=== PATIENT | female | born 1965 | race Caucasian/White ===

== ENCOUNTER 2017-07-22 09:42 | Day surgery (SDC) | payer BC, SELFPAY ==
--- NOTE | 2017-07-21 12:38 | EKG12_ITS ---
Test Reason : PRE-OP Blood Pressure : / mmHG Vent. Rate : 082 BPM Atrial Rate : 082 BPM P-R Int : 152 ms QRS Dur : 076 ms QT Int : 366 ms P-R-T Axes : 084 082 072 degrees QTc Int : 427 ms Normal sinus rhythm Right atrial enlargement Borderline ECG Confirmed by IRIS MCDONOUGH, LAILA ([id number]), advertising editor RAFA REZA ([id number]) on 07/22/2017 11:41:08 AM Referred By: June Flores Confirmed By:LAILA SMIMONS MD
--- NOTE | 2017-07-22 | BREAST_PTH ---
PATIENT: WILMA PADILLA LOC: [facility] – [place] U#:[id number] AGE/SX: 52/F ROOM: RE07/22/[address]: Dr. June Flores MD : 1965 BED: DIS: 07/22/2017 SPEC #: [id number] RECD: 07/22/17 14:19 STATUS: ALEXI RE #: [id number] BLAYNE: 07/22/17 00:[address]: June Flores DEPT: SURGICAL PATHOLOGY RECD BY: Desean Mccrary ENTERED: 07/22/17 14:21 SP TYPE: BREAST OTHR DR: Dr. Robert Bailon MD Tissues: Right breast, NOS Procedures: Surgery Specimen Level HEADER OPERATION: Simple mastectomy, right PRE-OP DIAGNOSIS: Right breast cancer; metastatic breast cancer from the left TISSUE SUBMITTED: Right breast mastectomy tissue, suture in tail of Euceda ISCHEMIC TIME: <10 minutes FIXATION TIME: 78 hours MICROSCOPIC DIAGNOSIS Right breast, mastectomy: Invasive ductal carcinoma. See cancer checklist below. AM:selena 07/26/17 COMMENT INVASIVE BREAST CANCER SUMMARY: Specimen: Total breast Procedure: Mastectomy specimen Specimen integrity: Single intact specimen. Specimen size: 12.5 x 11.2 x 2.3 cm Specimen laterality: Right breast Invasive tumor size: 6 x 5 x 4.5 millimeters Tumor focality: Single focus of invasive carcinoma. Macroscopic and Microscopic extent of tumor: Skin: Free of carcinoma. Nipple: Free of carcinoma. Skeletal muscle: Rare, free of carcinoma. Histologic type of invasive carcinoma: Invasive ductal carcinoma Histologic Grade (Ozzy grade): Glandular/tubular differentiation score: 3 Nuclear pleomorphism score: 2 Mitotic count score: 1 Overall grade: Grade 2 (total score of 6) Margins: Uninvolved by invasive carcinoma. Distance from closest margin (posterior margin) ? 2 mm Lymph-Vascular invasion: Not identified Dermal lymph-vascular invasion: Not identified Ductal carcinoma in situ (DCIS): Not present Lobular carcinoma in situ (LCIS): Not present Lymph nodes: Not submitted Microcalcifications - present in non-neoplastic tissue Treatment effect ? unknown Additional pathologic findings: Mild fibrocystic change and atrophy. Changes consistent with previous biopsy. Ancillary studies: Previously performed on same tumor ([id number] / [id number]). ER: 60%, weak RI: <1%, rare cells Her2 kaylan: 2+ (negative by dual KENNETH) PATHOLOGIC STAGE: pT1b Nx Mx The above summary is in compliance with [employer] of [place] (CAP) Cancer Protocols Checklist and [place] Joint Committee on Cancer (AJCC), Staging Manual, 8th Ed. Case has been reviewed in consultation with Dr. Sky who concurs with the above diagnosis. IDC:SJ MICROSCOPIC DESCRIPTION Slides are reviewed. GROSS DESCRIPTION Received in fixative is one container labeled with the patient's name and designated right breast mastectomy. The specimen consists of a mastectomy measuring 12.5 x 11.2 x 2.3 cm and weighing 120 gm. An ellipse of skin containing a centrally located nipple and areola is present. This skin fragment measures 8 x 2.3 cm. The specimen is differentially inked as follows: superior ? blue, inferior ? black, posterior ? green. Serial sections reveal a firm, chalky white area with gel-like material measuring 5 mm in diameter and located 0.3 cm from its closest (inferior) margin of excision. The remainder of the breast parenchyma is dominguez-yellow and containing focal dense white fibrous streaks. No distinct mass lesion is identified. Percussion Instrument Repairer sections are submitted as follows: 1 ? nipple and areola, 2 ? perpendicular superior, inferior and posterior margins, 3 ? perpendicular medial margin, 4 ? perpendicular lateral margin, 5-8 ? chalky area and tissue adjacent to it, 9-12 - benefits representative sections of uninvolved breast parenchyma away from chalky area. / AM:selena 07/25/17 TC:0 CPT: 30562
[2017-07-22 10:14] VITALS: BP 113/72; PULSE 68; RESP 16; TEMP 36.8; O2SAT 98; BMI 18.1
[2017-07-22 10:26] LABS: Hematocrit 36.4 % (37-47); Mean Corpuscular Hgb 36.3 pg (27.0-32.0); Mean Platelet Vol. 8.9 fl (6.2-12.0); Platelet Count 278 K/mm3 (150-450); RBC Distribution Width CV 14.6 % (11.6-14.6); RBC Distribution Width SD 58.7 fl (35.1-43.9); Red Blood Count 3.31 M/mm3 (4.2-5.4); White Blood Count 3.9 K/mm3 (4.4-11.0)
[2017-07-22 10:27] LABS: Scan Indicated on CBC? Y/N NO
--- NOTE | 2017-07-22 12:20 | OP.PN_ITS ---
Immediate Post-Op Note Date of Procedure: 07/22/17 Primary Surgeon/Physician: June Flores warehouse material handler: Rivera Hartman Pre-Operative Diagnosis: right breast cancer, metastatic left breast cancer Post-Operative Diagnosis: same Surgery/Procedure Performed:: right breast simple mastectomy Description of Surgical Findings:: no palpable breast masses in right breast tissue Estimated Blood Loss: < 20 Specimen's removed: right breast Drains: 15 Fr round passive drains - one toward axilla, one at mastectomy bed Type of Anesthesia:: General ASA Class: ASA3 Severe Disease - Admit VTE Documentation VTE Present on Admission: Yes VTE Mechan Device Prophylaxis: SCD's
[2017-07-22] MEDS: Cefazolin 2 GM in 0.9% Normal Saline 100 ML IV (12:22)
--- NOTE | 2017-07-22 12:22 | DCINST_ITS ---
Discharge Diet: No Restrictions Discharge Activity: Return to Normal Activity, May not drive while taking narcotic pain medications. Call your doctor if your incision/area has: Continuous Slow Oozing, Foul Smelling Discharge Additional Dressing/Incision Instructions:: Leave dressing in place. Can shower - but avoid getting drains/catheters wet - cover with towel, otherwise sponge bathe Allergies/Adverse Reactions: Allergies No Known Allergies Allergy (Verified 07/20/17 08:32) Medications to take at Discharge Cholecalciferol (Vitamin D3) [Vitamin D3] 1,000 unit PO DAILY 07/20/17 Palbociclib [Ibrance] 125 mg PO DAILY 07/20/17 Cephalexin [Keflex] 500 mg PO BID #14 cap 07/22/17 Hydrocodone/Acetaminophen [[place] 5-325 Tablet] 1 ea PO Q6H PRN PRN #20 tab 07/22 The following prescriptions were given: Hydrocodone/Acetaminophen [[place] 5-325 Tablet] 1 ea PO Q6H PRN PRN #20 tab PRN Reason: Mod-Severe Pain (4-10/10) Cephalexin [Keflex] 500 mg PO BID #14 cap Primary Care Physician: Robert Bailon [Primary Care Provider] - Please Follow Up With: June Flores MD - call When: to be seen Tuesday, please call for time, thank you
--- NOTE | 2017-07-22 13:28 | PCM.OPRPT ---
Report of Operation Date of Procedure: 07/22/17 Pre-Operative Diagnosis: right breast cancer, metastatic left breast cancer Post-Operative Diagnosis: same Surgery/Procedure Performed:: right breast simple mastectomy Description of Surgical Findings:: no palpable breast masses in right breast tissue director sterile processing: Rivera Hartman Type of Anesthesia:: General Anesthesiologist: Tyra Watson Specimen's removed: right breast Drains: 15 Fr round passive drains - one toward axilla, one at mastectomy bed Estimated Blood Loss (mL): 20 Fluids Replaced: 1250 ml RL Description of Procedure: After informed consent was given the patient was brought to the OR and placed in the supine position on the operating room table. Appropriate time out protocol was followed. She was then placed under general anesthesia. The patient's right chest and neck area was then prepped with a sterile surgical skin preparation and appropriate sterile surgical drapes were placed. A skin incision was made to include the periareolar tissues . The skin incision was made with a 10 blade scalpel and carried through to the subcutaneous tissues using electrocautery. Any hemorrhage was controlled with electrocautery. The medial and superior skin flap was created by the subcutaneous fat from the breast tissue using electrocautery. Any bleeding vessels were controlled with electrocautery. Larger vessels were ligated with vicryl suture. Dissection then continued to the level of the left lateral sternal border. The superior level of dissection was carried down to the clavipectoral fascia. The inferior skin flap was developed in the same fashion and the breast tissue was to its inferior border from the subcutaneous fat. The entire breast tissue and the pectoralis fascia were then from the pectoralis muscles starting medially and continuing laterally. The dissection included the interpectoral alonzo tissue. Once dissection was achieved to the lateral aspect of the breast, then the inferior portion of the lateral tissue was transected leaving the breast tissue connected only by the superior lateral tissue (tail of Eucdea) of the breast. . Hemostasis of the area of dissection was then achieved with electrocoagulation. The mastectomy bed was vigorously irrigated with sterile water and all irrigation solution was removed. A 15 Fr drain was placed in toward the axilla and another was placed along the mastectomy bed and these drains were brought out through separate skin incisions and sutured to the skin using nylon suture. The superior and inferior skin flaps were then approximated together using interrupted vicryl suture along the dermis of the skin edges. The skin incision was then reapproximated with 4-0 monocryl in a running subcuticular fashion. Cavilon and steristrips were then placed to reinforce the skin closure and proper sterile dressings were applied. - Complications none noted - Admit VTE Documentation VTE Present on Admission: Yes VTE Mechan Device Prophylaxis: SCD's
[2017-07-22 13:47] VITALS: BP 113/72; BP 123/94; PULSE 74; RESP 18; TEMP 36.7; O2SAT 99
[2017-07-22 14:00] VITALS: BP 113/72; BP 154/79; PULSE 65; RESP 18; O2SAT 97
[2017-07-22 14:15] VITALS: BP 113/72; BP 147/61; PULSE 68; RESP 18; O2SAT 98
[2017-07-22 14:29] VITALS: BP 113/72; BP 133/81; PULSE 70; RESP 18; TEMP 36.9; O2SAT 96
[2017-07-22 16:10] VITALS: BP 113/72
== END 2017-07-22 16:30 | disposition home or self-care (01) ==
LOC: SDC 09:43 → AC 09:44 → MS3 13:25 → AC 14:28
PROVIDERS: Anesthesiology; Family Provider Family Medicine; PCP Family Medicine; Visit Provider Surgery
PROC: (CPT 19307; principal; 2017-07-22 11:25)
DX: C50.111 Malignant neoplasm of central portion of right female breast (principal); C79.51 Secondary malignant neoplasm of bone; F17.210 Nicotine dependence, cigarettes, uncomplicated; Z85.3 Personal history of malignant neoplasm of breast
CPT/HCPCS: 00400; 19303; 36415; 85027; 88309; 93005; J7120; J2405

== ENCOUNTER → 2018-12-22 11:23 | Outpatient (CLI) | payer BC, SELFPAY ==
--- NOTE | 2018-12-22 11:29 | US_ITS ---
PROCEDURE: Ultrasound guided paracentesis. DATE OF EXAMINATION: December 22, 2018.. INDICATION: Female, 53 years old. Ascites. PHYSICIAN: Tyler Coleman M.D. TECHNIQUE: The risks, benefits, and alternatives to the procedure were explained to the patient. The specific risks of bleeding, infection, and damage to bowel were detailed and accepted. Witnessed informed consent was obtained. The abdomen was ultrasonographically surveyed. An appropriate pocket of fluid was identified at the right lower quadrant. The skin were cleaned and prepped in the usual sterile fashion. Using ultrasound guidance, the peritoneal cavity was accessed with a 5-Macedonian paracentesis needle/catheter system. The trocar was removed. A total of 2720 ml of felipe-colored fluid were removed from the peritoneal cavity. The catheter was removed and a sterile dressing was applied. The procedure was well tolerated. US/Paracentesis with US IMPRESSION: Ultrasound guided paracentesis. Electronically Signed: Tyler Coleman, at 9:23 EDT , Service support ,
[2018-12-22 13:09] LABS: International Normalized Ratio 1.2; Prothrombin Time (Protime)PT. 14.9 SECONDS (11.7-14.9)
[2018-12-22 14:14] VITALS: BP 148/89; BP 155/93; BP 157/90; BP 160/94; BP 161/88; BP 162/89; BP 162/95; BP 165/89; PULSE 101; PULSE 89; PULSE 91; PULSE 95; PULSE 98; PULSE 99; RESP 16; RESP 18; O2SAT 100; O2SAT 95; O2SAT 99
== END ==
PROVIDERS: Family Provider Family Medicine; PCP Family Medicine; Referring Provider Internal Medicine Hematology & Oncology; Visit Provider Internal Medicine Hematology & Oncology
DX: C79.81 Secondary malignant neoplasm of breast (principal)
CPT/HCPCS: 36415; 49083; 85610

== ENCOUNTER 2018-12-27 10:45 | Inpatient (IN) | payer BC, SELFPAY ==
--- NOTE | 2018-12-27 | IMM_PTH ---
PATIENT: WILMA PADILLA LOC: [facility] U#:[id number] AGE/SX: 53/F ROOM: MS306 RE12/27/[address]: Dr. Sai Nguyen MD : 1965 BED: 1 DIS: 12/31/2018 SPEC #: [id number] RECD: 01/01/19 14:37 STATUS: ALEXI REQ #: [id number] BLAYNE: 12/27/18 00:[address]: Sai Nguyen DEPT: IMMUNOHISTOCHEMISTRY RECD BY: Liza Shaikh ENTERED: 01/01/19 14:40 SP TYPE: IMMUNO OTHR DR: MD Dr. Sudeep Farfan MD Dr. Robert Leininger, MD Tissues: PARACENTESIS FLUID Procedures: Perfecto Ret (add) CK20 (add) REYES (add) P53 (add) Vimentin (add) CK7 (initial) PHYSICIAN & INSTITUTION [place] [id number] SPECIMEN INFORMATION: Tissue Source: Paracentesis fluid Clinical Info: Abdomen pain Specimen Number: [id number] CPT code: 24179, 35934 x5 METHODOLOGY: Deparaffinized sections of prefer/formalin-fixed tissue or PAP/DQ stained slides are incubated with monoclonal/polyclonal antibodies/oligonucleotide probes. Localization is made via biotin free immunoperoxidase method. Appropriate controls are performed and reacted as expected. Results on target cell population are indicated in the following table: RESULTS: ANTIBODY / CLONE RESULT CK7 (OV-TL12/30) negative CK20 (KS20.8) negative P53 (DO-7) negative CALRET (polyclonal) positive Vimentin (V9) positive REYES (E29) negative These tests were developed and their performance characteristics determined by [facility]. They may not have been cleared or approved by the U.S. Food and Drug Administration. The FDA has determined that such clearance or approval is not necessary. INTERPRETATION: Paracentesis fluid: No evidence of malignancy. AM:selena 01/02/19
--- NOTE | 2018-12-27 | FLU_PTH ---
PATIENT: WILMA PADILLA LOC: [facility] U#:[id number] AGE/SX: 53/F ROOM: MS306 RE12/27/[address]: Dr. Sai Nguyen MD : 1965 BED: 1 DIS: 12/31/2018 SPEC #: [id number] RECD: 12/27/18 15:37 STATUS: ALEXI REAdrián #: [id number] BLAYNE: 12/27/18 00:[address]: Tyler Coleman DEPT: CYTOLOGY RECD BY: Phil Mcclelland ENTERED: 12/29/18 14:49 SP TYPE: Fluid OTHR DR: MD Dr. Sai Farfan MD Dr. Lapman Lun, MD Dr. Robert Leininger, MD Tissues: PARACENTESIS FLUID Procedures: Special Stain Group II Surgery Specimen Level IV Cytospin Fluid HEADER OPERATION: Ultrasound-guided right paracentesis PRE-OP DIAGNOSIS: Abdomen pain TISSUE SUBMITTED: Paracentesis fluid for cytology DIAGNOSIS CYTOLOGY Paracentesis fluid for cytology (cytospin and cell block): Marked acute inflammation. Epithelioid cells with mild atypia, favor reactive. AM:selena 01/01/19 COMMENT Immunohistochemistry ([id number]) supports the above diagnosis. CYTOLOGY STUDY Slides are reviewed. CYTOLOGY GROSS Received is 16 ml of cloudy yellow fluid labeled with the patient's name and and designated per the requisition as paracentesis. Submitted for cytology preparation including cell block. / 12/29/18 TC:2 CPT: 52902, 70526
[2018-12-27 10:46] VITALS: BP 119/82; PULSE 99; RESP 16; TEMP 36.9; BMI 16.8
--- NOTE | 2018-12-27 11:03 | US_ITS ---
PROCEDURE: Ultrasound guided diagnostic paracentesis. DATE OF EXAMINATION: December 27, 2018. INDICATION: Female, 53 years old. Ascites. PHYSICIAN: Tyler Coleman M.D. TECHNIQUE: The risks, benefits, and alternatives to the procedure were explained to the patient. The specific risks of bleeding, infection, and damage to bowel were detailed and accepted. Witnessed informed consent was obtained. The abdomen was ultrasonographically surveyed. An appropriate pocket of fluid was identified at the right lower quadrant. The skin were cleaned and prepped in the usual sterile fashion. Using ultrasound guidance, the peritoneal cavity was accessed with a 5-Romansh paracentesis needle/catheter system. The trocar was removed. A total of 30 ml of cloudy felipe fluid were removed from the peritoneal cavity. The catheter was removed and a sterile dressing was applied. The procedure was well tolerated. US/Paracentesis with US IMPRESSION: Ultrasound guided paracentesis. Electronically Signed: Tyler Coleman, at 9:25 EDT , Service support ,
--- NOTE | 2018-12-27 11:06 | CT_ITS ---
STUDY: CT ABDOMEN AND PELVIS WITHOUT CONTRAST REASON FOR EXAM: Female, 53 years old. Abdominal pain. Recent paracentesis. History of metastatic breast cancer. RADIATION DOSAGE (If Supplied By Facility): CTDIvol = ( 6.04 ) mGy, DLP = ( 297.48 ) mGycm TECHNIQUE: Transaxial images were obtained from the dome of the diaphragm to the symphysis pubis without oral contrast, and without intravenous contrast. Sagittal and coronal images were reconstructed. Individualized dose optimization techniques were used for this CT. COMPARISON: None. FINDINGS: Moderate ascites within the abdomen and pelvis. Minimal increase in markings in the lateral aspect of the right lower lobe suggestive of either linear atelectasis and/or scarring. The visualized portions of the heart are within normal limits. There is a diffuse contour abnormality of the liver consistent with cirrhotic changes. Multiple hypodense nodules are seen throughout the liver in keeping with the hepatic metastasis. Normal gallbladder and extrahepatic biliary system. Normal spleen. Normal pancreas. Normal bilateral adrenal glands. Normal right kidney. Normal left kidney. Normal visualized stomach. Normal small intestine. There are scattered colonic diverticula consistent with diverticulosis. The appendix is visualized and appears normal. There is diffuse atherosclerotic calcification of the abdominal aorta, without a demonstrated aneurysm. Normal inferior vena cava. Normal retroperitoneum. Normal urinary bladder. Normal abdominal wall. Diffuse sclerotic metastases involving the visualized thoracic and lumbar vertebrae as well as the pelvis worse in the left iliac bone. CT/Abdomen/Pelvis without Cont IMPRESSION: Ascites. Hepatic metastasis. Sclerotic bone metastasis. Electronically Signed: Tyler Coleman, at 12:23 EDT , Service support ,
--- NOTE | 2018-12-27 11:18 | ED.VIS.GEN ---
History of Present Illness Chief Complaint: Abd Pain Informant: Patient Onset: Days Narrative: Abdominal pain history of metastatic breast cancer to liver and other areas. The patient indicates basically she is presenting with worsening abdominal pain. She is had abdominal pain related to ascites liver metastasis etc. she indicates she recently had a paracentesis at [facility] reports indicates she had 3 L removed she felt better than on Tuesday she had recurrence of the abdominal pain that was quite severe the day she developed diarrhea that is copious she cannot eat or drink she was at one time able to relieve her abdominal pain with Warren but that is no longer effective. She was placed on zylodia, a new chemotherapeutic agent recently, she was spoke with her oncologist Dr. Moscoso office and was asked to come to the hospital for evaluation she had no fever she indicates her abdomen she seems to be getting more distended but not as bad as it was on Tuesday prior to the paracentesis Past Medical History - Allergies and Home Meds Allergies/Adverse Reactions: Allergies No Known Allergies Allergy (Verified 12/27/18 10:48) Primary Care Physician: Robert Bailon MD [Primary Care Provider] - Past Medical History: - - She indicates she initially had breast cancer years ago was in remission for 10 years then 2 years ago was found to have metastatic rest cancer and spring 2018 was found to have metastasis to the liver Smoking Status: Current every day smoker Review of Systems General: Denies: Chills, Fever, Sweats Eyes: Denies: Visual changes - bilaterally, Diplopia ENT: Denies: Rhinorrhea, Sore throat Cardiovascular: Denies: Chest pain, Palpitations Respiratory: Denies: Dyspnea, Cough, Dyspnea on exertion Gastrointestinal: Reports: Abdominal pain, Nausea, Diarrhea. Denies: Vomiting, Melena, Hematochezia Genitourinary: Denies: Dysuria, Hematuria, Frequency Musculoskeletal: Denies: Back pain, Extremity Pain Skin: Denies: Rash, Wounds Neurological: Denies: Headache, Weakness, Numbness Physical Exam Vital Signs/Narrative: Vital Signs Temp Pulse Resp BP 12/27/18 10:46 98.4 F 99 16 119/82 H General: Well nourished, Well developed, No Acute Distress Head: Normocephalic, Atraumatic Eyes: Perrl, EOMI ENT: Moist mucous membranes, No rhinorrhea Neck: Supple, Nontender Cardiovascular: Regular rate, Regular rhythm, No murmurs Respiratory: No distress, CTA bilaterally, Chest nontender Abdomen: Soft, Nondistended, Normal bowel sounds, Tender, Guarding, - - She does have some abdominal distention but per the family this is less than it was after paracentesis and has been increasing her abdominal pain is generalized Back: Nontender, Normal Inspection Extremities: Nontender, No edema Skin: Normal color, No rash Neurological: Alert, Oriented x3, Cranial nerves II-XII grossly intact, Normal Strength, Normal Sensation Psychological: Normal affect, Normal Mood Diagnostic/Tx/Re-eval - Medical Decision Making Her differential is rather extensive which certainly include peritonitis other complications from her condition I spoke with Dr. Moscoso her attending oncologist he agreed with obtaining paracentesis to evaluate for peritonitis CT scan screening labs IV fluids he is strongly recommending admission for further management of all the above he would like her started on broad-spectrum antibiotics such as Primaxin, spoke with radiology spoke with pharmacy she will have the paracentesis done sometime today as radiology is quite busy we will start the IV antibiotics arrange for screening labs and arrange for admission, her oncologist would like to talk to her about ongoing therapy and possible hospice management going forward Please note the patient's screening labs are generally unremarkable CT abdomen report is available nothing acute metastatic lesions the paracentesis to evaluate for peritonitis is pending spoke with the hospitalist they will arrange for admission and further management Admit stable Final impression Intractable abdominal pain, diarrhea, recent paracentesis, metastatic breast cancer ED Disposition - Plan for ED Patient: Referrals: Robert Bailon MD [Primary Care Provider] -
[2018-12-27 11:33] LABS: Absolute Lymphocyte Count 0.79 X10^3/ul (0.83-4.51); Eosinophil# 0.06 X10^3/uL; Eosinophils% 0.7 % (0-5); Hemoglobin 10.4 g/dl (12.0-15.0); Lymphocyte # 0.79 X10^3/ul (4.0); Lymphocyte % 9.4 % (19-41); Mean Corp Hgb Conc 34.7 g/gl (32-36); Mean Corpuscular Hgb 31.2 pg (27.0-32.0); Mean Corpuscular Volume 90.1 fL (81-99); Mean Platelet Vol. 9.3 fl (6.2-12.0); Neutrophil # 7.01 X10^3/uL (2.7-7.7); Neutrophil % 83.7 % (47-70); Platelet Count 155 K/mm3 (150-450); RBC Distribution Width CV 20.1 % (11.6-14.6); RBC Distribution Width SD 63.6 fl (35.1-43.9); Red Blood Count 3.33 M/mm3 (4.2-5.4); White Blood Count 8.4 K/mm3 (4.4-11.0)
[2018-12-27 11:37] LABS: Differential Indicated SCAN CRITERIA MET; POSITIVE COUNT NO; POSITIVE DIFFERENTIAL NO; POSITIVE MORPHOLOGY YES
[2018-12-27 11:39] LABS: AST(SGOT) 71 U/L (15-37); Alanine Aminotransfer ALT/SGPT 70 U/L (13-56); Albumin, Serum 2.2 g/dL (3.2-5.0); Alkaline Phosphatase 402 U/L (45-117); Anion Gap 10 (5-15); BUN 21 mg/dL (7-18); BUN/Creat Ratio 30.5 RATIO (10-20); Bilirubin, Direct 4.11 mg/dL (0.00-0.30); Calcium,Total 8.6 mg/dL (8.5-10.1); Chloride 101 mmol/L (98-107); Creatinine, Serum 0.69 mg/dL (0.55-1.02); EST Glomerular Filtration Rate 95 mL/min (>60); Est Glom Filt Rate - Afr Amer 115 mL/min (>60); Estimated Creatinine Clearance 66.93 ml/min; Globulin 3.2 g/dL (2.2-4.2); Glucose 102 mg/dL (74-106); Lipase 67 U/L (73-393); Protein, Total 5.4 g/dL (6.4-8.2); Sodium Level 136 mmol/L (136-145)
[2018-12-27] MEDS: Morphine 4 MG/ML Syringe IV ×3 (11:42→22:25)
[2018-12-27] MEDS: 0.9% Normal Saline 1,000 ML 15 ML IV (11:42)
[2018-12-27] MEDS: Ondansetron 4 MG/2 ML Vial IV (11:43)
--- NOTE | 2018-12-27 12:54 | HP.PCM_ITS ---
Problem List (1) Breast CA Status: Chronic (2) Liver metastases Status: Chronic (3) Ascites Status: Chronic (4) Peritonitis Status: Acute (5) Abdominal pain Status: Acute History of Present Illness Date of Admission: 12/27/18 Chief Complaint: Abdominal pain The patient is a 53 year old F with past medical history significant for recurrent breast CA after 10-year remission. Patient had a recurrence of her breast cancer 2 years ago. She was diagnosed with metastasis to the liver in spring 2018 subsequent ascites 4. Patient has undergone therapeutic paracentesis. Her last session was on 12/22/2018. She presented to the emergency department with a day history of significant abdominal pain. A presumptive diagnosis of peritonitis was made started on meropenem and admitted to regular nursing floor for further management. On further questioning patient denied any subjective fever no chills however did complain of decreased appetite. She denied nausea no diarrhea. Imaging studies obtained in the ED demonstrated ascites as well as hepatic metastasis and sclerotic bone mets. Patient's oncologist Dr. Grove was notified prior to patient being admitted Past Medical History Past Medical History (Chronic Problems): Chronic Problems Breast CA (Chronic) Liver metastases (Chronic) Ascites (Chronic) Allergies No Known Allergies Allergy (Verified 12/27/18 10:48) Home Medications: Ambulatory Orders Medication Instructions Recorded Capecitabine 1,500 mg PO BID 12/27/18 Cholecalciferol (VIT D3) [Vitamin 1,000 unit PO DAILY 12/27/18 D] Furosemide [Lasix] 20 mg PO QODAY 12/27/18 Hydrocodone/Acetaminophen 1 tab PO Q6H PRN PRN 12/27/18 [Hydrocodone-Acetamin 5-325 mg] Potassium Chloride [Klor-Con M20] 20 meq PO DAILY 12/27/18 Spironolactone 25 mg PO DAILY 12/27/18 Zolpidem Tartrate 5 mg PO QHS PRN PRN 12/27/18 Smoking Status: Former smoker - *Family History Maternal History Items: Cancer - Breast cancer Review of Systems Constitutional: Reports: Anorexia, Malaise, Weakness. Denies: Chills, Fever HEENT: Denies: Head Aches, Sinus Congestion, Sinus Drainage Cardiovascular: Denies: Chest Pain, Orthopnea, Palpitations, Paroxysmal Noc. Dyspnea Respiratory: Denies: Cough, Shortness of breath at rest, Shortness of breath upon exertion, Sputum production Gastrointestinal: Reports: Abdominal Pain. Denies: Hematemesis, Hematochezia Genitourinary: Denies: Dysuria, Frequency, Hematuria, Urgency Musculoskeletal: Denies: Joint Pain, Joint Tenderness Skin: Denies: Rash Neurological: Denies: Focal weakness, Numbness, Tingling Psychiatric: Denies: Homicidal Ideations, Suicidal Ideations Hematologic/ Lymphatic: Denies: Easy Bruising, Easy Bleeding VTE Information - Inpt Only VTE Present on Admission: No VTE Mechan Device Prophylaxis: None VTE Pharm Prophylaxis ordered?: Yes Patient Problems: Active and Suspected Problems Peritonitis (Acute) Abdominal pain (Acute) Objective: GENERAL: Appears frail looking HEENT: Atraumatic; EYES; Anicteric, jaundiced conjunctiva NECK; supple, normal thyroid, RESPIRATORY: Diminished to auscultation CARDIOVASCULAR: Regular S1 S2, GI: Colitis abdominal tenderness : No Renal angle tenderness; EXTREMITIES: No edema, no clubbing, MUSCULOSKELETAL: No Joint Tenderness; NEURO: Awake; no lateralizing signs. SKIN: Jaundiced PSYCH; Normal affect - Physical Exam Vital Signs Temp Pulse Resp BP 98.4 F 99 16 119/82 H 12/27/18 10:46 12/27/18 10:46 12/27/18 10:46 12/27/18 10:46 Weight: 44.452 kg Body Mass Index (BMI) 16.8 Laboratory Tests Past 24 Hrs 12/27/18 12/27/18 11:04 11:04 WBC 8.4 RBC 3.33 L Hgb 10.4 L Hct 30.0 L MCV 90.1 MCH 31.2 MCHC 34.7 RDW 20.1 H RDW Differential 63.6 H Plt Count 155 MPV 9.3 Immature Gran % (Auto) 0.200 Neut % (Auto) 83.7 H Lymph % (Auto) 9.4 L [place] % (Auto) 6.0 Eos % (Auto) 0.7 Baso % (Auto) 0.0 Absolute Neuts (auto) 7.0 Absolute Lymphs (auto) 0.79 L Total Counted Not Reportable Differential Comment COMMENT Sodium 136 Potassium 4.0 Chloride 101 Carbon Dioxide 25.0 Anion Gap 10 BUN 21 H Creatinine 0.69 Estim Creat Clear Calc 66.93 Est GFR (MDRD) Af Amer 115 Est GFR (MDRD) Non-Af 95 BUN/Creatinine Ratio 30.5 H Glucose 102 Calcium 8.6 Total Bilirubin 6.60 H Direct Bilirubin 4.11 H AST 71 H ALT 70 H Alkaline Phosphatase 402 H Total Protein 5.4 L Albumin 2.2 L Globulin 3.2 Lipase 67 L Assessment/Plan All Active Problems Peritonitis (Acute) Abdominal pain (Acute) Patient is a 53-year-old lady with history of metastatic breast cancer presented with abdominal pain 1. Abdominal pain suspected to be secondary to bacterial peritonitis following patient recent therapeutic paracentesis performed on 12/22/2018. Patient has been admitted to regular nursing floor started on broad-spectrum antibiotic therapy consult placed to interventional radiology for diagnostic paracentesis 2. Recurrent breast CA with mets to the bone and liver patient is managed by Dr. Gaspar consult was placed to him from the ED. 3. Severe protein calorie malnutrition as evidenced by muscle wasting, decreased energy level and low BMI of 16.8 4. Acute cholestasis from patient's liver meds 5. DVT prophylaxis SC Lovenox Advance planning; did discuss with the patient and daughter regarding advanced directives as well as CODE STATUS. Did explain the various scenarios involved ( FULL CODE, DNR CCA, DNR CCA with no intubation, and DNR CC and what each meant) patient elected to be DNR CCA no intubation. Order was placed. Time spent on discussion 18 minutes. Code Visit Inpatient E&M: 60241 Subs Hosp L3 Procedures: 43902 Advncd Care Plan 30 Min
--- NOTE | 2018-12-27 12:59 | ED.RN ---
Addendum entered by Solo Hanson 12/29/18 21:20: Original Note: PT AWARE OF NEED FOR UA. UNABLE TO PROVIDED SAMPLE AT THIS TIME. DR CRAIG WAITING FOR SAMPLE. López TOMPKINS RN 1300
--- NOTE | 2018-12-27 13:40 | CASEMGMT ---
RN CM Assessment Introduced role of RN CM to patient and patient Dtr Amber at bedside.? Patient is alert, oriented and able?to participate in RN CM Assessment. ?Care providers, pharmacy, and demographics verified. Presentation: Abd Pain. H/o Breast CA with Mets to liver and other areas. Had Paracentesis with 3L removed on Tuesday12/22/18, states felt better for a couple days after but then started having pain again. Admit Dx: Abd Pain Re-Admit: No Barriers/Issues: None. Patient states that her goal is home however wants her pain to controlled. This advertising writer encouraged patient to s/w ONC Dr Grove if not discussed this hospitalization regarding Palliative Care for Symptom Management. PCP: Osman Bailon Specialists: ONC- Dr Grove Preferred [facility]acy: [facility] Insurance: [employer] Benefit: Yes? LNOK: Dtr Amber Bass, Cristian Bass LW/HPOA: Yes both, HPOA- Cristian Bass Living Arrangements:?Lives with her in a SS Home, 3-4 steps to enter ADL?s: Independent with ambulation and ADLs Transportation: Patient drives, has not been driving lately, Dtr Amber has been driving and will upon DC DME: None HHC: None SNF: None Goal: Home, see above issue- Denies Questions. Does not think will have any needs, Only Concern addressed above with Issue. Aware CM remains available for any emerging needs. DC PLAN: Home with possible Palliative Care Referral. Aamnda Mcclain RNCM
[2018-12-27 14:16] VITALS: BP 125/70; PULSE 98; RESP 16; TEMP 36.3; O2SAT 95
[2018-12-27 14:18] VITALS: BMI 17.0
[2018-12-27 14:21] VITALS: BMI 17.1
[2018-12-27] MEDS: Dextrose 5%/0.9% NaCl 1,000 ML 100 ML IV (14:28)
[2018-12-27 15:00] LABS: Lipase 61 U/L (73-393)
--- NOTE | 2018-12-27 15:00 | NURSING ---
pt transported down to ultrasound for paracentesis via bed.
[2018-12-27 15:45] VITALS: BP 118/72; PULSE 103; RESP 18; TEMP 36.7; O2SAT 95
[2018-12-27 15:46] VITALS: BP 125/71; BP 132/70; PULSE 106; PULSE 112; RESP 18; O2SAT 100; O2SAT 98
[2018-12-27 17:20] LABS: Auto B Fluid Analyzer BKGD Ct COUNTS W/IN LIMITS (W/IN LIMITS)
[2018-12-27 17:21] LABS: Color/Body Fluid YELLOW; Source- Body Fluid THORACENTESIS
[2018-12-27 17:22] LABS: Appearance/Body Fluid CLOUDY; Body Fluid Total Cells Counted 12.955 10^3/ul (0.000-0.000)
[2018-12-27 17:25] LABS: Body Fluid Mononuclear WBC # 0.805 10^3/uL; Body Fluid Mononuclear WBC % 6.8 %; Body Fluid Polynuclear WBC % 93.2 %
[2018-12-27 17:26] LABS: Body Fluid Polynuclear WBC # 11.096 10^3/uL
[2018-12-27 17:32] LABS: Glucose, Body Fluid 96 mg/dL (40-70)
[2018-12-27 17:33] LABS: LDH,Body Fluid 177 Units/l (Not Establ.); Protein, Body Fluid 0.7 g/dL (Not Establ.)
[2018-12-27 18:33] LABS: Body Fluid QC Type(s) BF2Q
[2018-12-27 18:38] LABS: Lymphocytes 1 %; Monocytes 13 %; Neutrophil (Segs) 86 %
[2018-12-27 20:06] VITALS: BP 127/71; PULSE 105; RESP 16; TEMP 36.9; O2SAT 98
[2018-12-27 20:08] VITALS: O2SAT 98
[2018-12-27] MEDS: 0.9% NaCl Peripheral Flush Adult/Peds IV (21:37)
[2018-12-28 01:39] LABS: Mucous, Urine 0 SEEN /hpf (<or=2+)
[2018-12-28 01:45] LABS: Glucose, Dipstick Normal (Normal); Ketone-Dipstick 15 mg/dl (Negative); Leukocyte Esterase-Dipstick 500 /ul (Negative); Nitrite-Dipstick Positive (Negative); Occult Blood-Urine 150 /ul (Negative); Protein-Dipstick 30 mg/dl (Negative); Urine Clarity Sl. Cloudy (Clear); Urine Urobilinogen 4 mg/dl (Normal)
[2018-12-28 02:05] LABS: Color, Urine SEE COMMENT BELOW (Yellow); Urine Bilirubin Dipstick 3 mg/dL (Negative)
[2018-12-28 02:06] LABS: Red Blood Cells-Urine 5-10 SEEN /hpf (0-5); Squamous Epithelial Cells - UA 0-5 SEEN /hpf (5-10); White Blood Cells 5-10 SEEN /hpf (0-5)
[2018-12-28 02:07] LABS: Bacteria RARE /hpf (None Seen)
[2018-12-28 02:13] VITALS: BP 125/70; PULSE 95; RESP 16; TEMP 36.7; O2SAT 97
[2018-12-28] MEDS: Dextrose 5%/0.9% NaCl 1,000 ML 100 ML IV ×2 (04:19→14:13)
[2018-12-28] MEDS: Morphine 4 MG/ML Syringe IV ×5 (05:33→21:26)
[2018-12-28] MEDS: Enoxaparin 40 MG/0.4 ML Syringe SC (05:34)
[2018-12-28 07:39] LABS: Anion Gap 7 (5-15); BUN 17 mg/dL (7-18); BUN/Creat Ratio 32.3 RATIO (10-20); Calcium,Total 7.8 mg/dL (8.5-10.1); Chloride 106 mmol/L (98-107); Creatinine, Serum 0.53 mg/dL (0.55-1.02); EST Glomerular Filtration Rate 130 mL/min (>60); Est Glom Filt Rate - Afr Amer 157 mL/min (>60); Estimated Creatinine Clearance 88.38 ml/min; Glucose 120 mg/dL (74-106); Potassium 3.8 mmol/L (3.5-5.1); Sodium Level 138 mmol/L (136-145)
--- NOTE | 2018-12-28 07:47 | PCM.PN.HOSP ---
Patient Problems: Active and Suspected Problems Peritonitis (Acute) Abdominal pain (Acute) Subjective: Patient seen still complains of abdominal tenderness. Paracentesis obtained on 12/27/2018 had WBC count greater than 11,000 consistent with bacterial peritonitis. Patient also reports loose bowel movement having gone 3 times already this a.m. Objective: GENERAL: Appears frail looking HEENT: Atraumatic; EYES; Anicteric, jaundiced conjunctiva NECK; supple, normal thyroid, RESPIRATORY: Diminished to auscultation CARDIOVASCULAR: Regular S1 S2, GI: Colitis abdominal tenderness : No Renal angle tenderness; EXTREMITIES: No edema, no clubbing, MUSCULOSKELETAL: No Joint Tenderness; NEURO: Awake; no lateralizing signs. SKIN: Jaundiced PSYCH; Normal affect Vitals/I&O's: Vital Signs Temp Pulse Resp BP Pulse Ox 98.1 F 95 16 125/70 H 97 12/28/18 02:13 12/28/18 02:13 12/28/18 02:13 12/28/18 02:13 12/28/18 02:13 Oxygen Delivery Method [2] Room Air Oxygen Delivery Method [1 ( Room Air Initial Baseline)] Oxygen Delivery Method Room Air Weight: 45.087 kg Body Mass Index (BMI) 17.0 Intake and Output for Last 24 Hours 12/26/18 12/27/18 12/28/18 23:59 23:59 23:59 Intake Total 368 / 368 1727 / 1727 Balance 368 / 368 1727 / 1727 Laboratory Results 12/27/18 11:04: WBC 8.4, RBC 3.33 L, Hgb 10.4 L, Hct 30.0 L, MCV 90.1, MCH 31.2, MCHC 34.7, RDW 20.1 H, RDW Differential 63.6 H, Plt Count 155, MPV 9.3, Immature Gran % (Auto) 0.200, Neut % (Auto) 83.7 H, Lymph % (Auto) 9.4 L, [place] % (Auto) 6.0, Eos % (Auto) 0.7, Baso % (Auto) 0.0, Absolute Neuts (auto) 7.0, Absolute Lymphs (auto) 0.79 L, Total Counted Not Reportable, Differential Comment COMMENT 12/27/18 11:04: Sodium 136, Potassium 4.0, Chloride 101, Carbon Dioxide 25.0, Anion Gap 10, BUN 21 H, Creatinine 0.69, Estim Creat Clear Calc 66.93, Est GFR (MDRD) Af Amer 115, Est GFR (MDRD) Non-Af 95, BUN/Creatinine Ratio 30.5 H, Glucose 102, Calcium 8.6, Total Bilirubin 6.60 H, Direct Bilirubin 4.11 H, AST 71 H, ALT 70 H, Alkaline Phosphatase 402 H, Total Protein 5.4 L, Albumin 2.2 L, Globulin 3.2, Lipase 67 L 12/27/18 14:40: Lipase 61 L 12/27/18 15:36: Fluid Glucose 96 H, Fluid Total Protein 0.7, Fluid LDH 177 12/27/18 15:36: Fluid Source THORACENTESIS, Fluid Color YELLOW, Fluid Appearance CLOUDY, Fluid WBC 12.880, Fluid RBC 0.30672, Fluid Tot Cell Count 12.955 H, Fld Polynuclear WBCs # 11.096, Fld Polynuclear WBCs % 93.2, Fluid Mononuclear WBCs 0.805, Fld Mononuclear WBCs % 6.8, Fluid Neutrophils 86, Fluid Lymphocytes 1, Fluid Monocytes 13, Fl Pathologist Comment May follow, Fluid Comment 2 SEE COMMENT 12/28/18 01:27: Urine Color SEE COMMENT BELOW, Urine Clarity Sl. Cloudy, Urine pH 6.0, Ur Specific [place] 1.020, Urine Protein 30 H, Urine Glucose (UA) Normal, Urine Ketones 15 H, Urine Occult Blood 150 H, Urine Nitrite Positive H, Urine Bilirubin 3 H, Urine Urobilinogen 4 H, Ur Leukocyte Esterase 500 H, Urine RBC 5-10 SEEN, Urine WBC 5-10 SEEN, Ur Squamous Epith Cells 0-5 SEEN, Urine Bacteria RARE, Urine Mucus 0 SEEN 12/28/18 05:39: WBC Pending, RBC Pending, Hgb Pending, Hct Pending, MCV Pending, MCH Pending, MCHC Pending, RDW Pending, RDW Differential Pending, Plt Count Pending, Neut % (Auto) Pending, Absolute Neuts (auto) Pending, Total Counted Pending 12/28/18 05:39: Sodium 138, Potassium 3.8, Chloride 106, Carbon Dioxide 25.0, Anion Gap 7, BUN 17, Creatinine 0.53 L, Estim Creat Clear Calc 88.38, Est GFR (MDRD) Af Amer 157, Est GFR (MDRD) Non-Af 130, BUN/Creatinine Ratio 32.3 H, Glucose 120 H, Calcium 7.8 L, Magnesium 2.0 Current Medications Hydrocodone Bitart/Acetaminophen ([place] 5mg-325mg) 1 tablet PO Q6H PRN PRN PRN Reason: PAIN Al Hydroxide/Mg Hydroxide (Mylanta Ii) 30 ml PO Q6H PRN PRN PRN Reason: Gastric Burning Cholecalciferol (Vitamin D) 1,000 unit PO DAILY [facility] Enoxaparin Sodium (Lovenox) 40 mg SC DAILY@0600 [facility] Last Admin: 12/28/18 05:34 Dose: 40 mg Documented by: Furosemide (Lasix) 20 mg PO QODAY [facility] Guaifenesin (Robitussin) 20 ml PO Q4H PRN PRN PRN Reason: COUGH Sodium Chloride () 1,000 mls @ 0 mls/hr IV .Q0M [facility] Last Admin: 12/27/18 11:42 Dose: 15 mls/hr Documented by: Cefepime HCl 1 gm/ Sodium (Chloride) 50 mls @ 100 mls/hr IV Q8 [facility] Last Admin: 12/28/18 05:34 Dose: 100 mls/hr Documented by: Dextrose/Sodium Chloride (Dextrose 5%/0.9% Nacl) 1,000 mls @ 100 mls/hr IV .Q10H [facility] Last Admin: 12/28/18 04:19 Dose: 100 mls/hr Documented by: Sodium Chloride () 250 mls @ 15 mls/hr IV .[id number] PRN PRN Reason: SALINE FLUSH Magnesium Hydroxide (Milk Of Magnesia) 30 ml PO DAILY PRN PRN PRN Reason: Constipation Morphine Sulfate () 4 mg IV Q3H PRN PRN PRN Reason: Severe pain (7-10/10) Last Admin: 12/28/18 05:33 Dose: 4 mg Documented by: Non-Formulary Medication (Capecitabine) 1,500 mg PO BID [facility] Nutritional Formula (Lactose Free) (Ensure Enlive) 120 ml PO 4X/DAY [facility] Last Admin: 12/27/18 21:37 Dose: Not Given Documented by: Ondansetron HCl (Zofran) 4 mg IV Q6H PRN PRN PRN Reason: NAUSEA/VOMITING Oxycodone HCl (Oxyir) 5 mg PO Q4H PRN PRN PRN Reason: Moderate Pain (4-6/10) Potassium Chloride (K-Dur) 20 meq PO DAILY TONJA Sodium Chloride () 10 - 40 ml IV UD PRN PRN Reason: SALINE FLUSH Last Admin: 12/27/18 21:37 Dose: 10 ml Documented by: Spironolactone (Aldactone) 25 mg PO DAILY TONJA Zolpidem Tartrate (Ambien (Generic)) 5 mg PO QHS PRN PRN PRN Reason: insomnia Medical Necessity - Tobacco Use Smoking Status: Current some day smoker Tobacco Use: Cigarettes Assessment/Plan All Active Problems Peritonitis (Acute) Abdominal pain (Acute) Patient is a 53-year-old lady with history of metastatic breast cancer presented with abdominal pain 1. Abdominal pain suspected to be secondary to bacterial peritonitis following patient recent therapeutic paracentesis performed on 12/22/2018. Patient has been admitted to regular nursing floor started on broad-spectrum antibiotic therapy consult placed to interventional radiology for diagnostic paracentesis ~12/28/2018 Paracentesis obtained on 12/27/2018 had WBC count greater than 11,000 consistent with bacterial peritonitis patient is on cefepime awaiting cultures 2. Acute diarrhea noted enteric pathogen panel as well as stool for C. difficile 3. Recurrent breast CA with mets to the bone and liver patient is managed by Dr. Grove; case discussed with him 4. Severe protein calorie malnutrition as evidenced by muscle wasting, decreased energy level and low BMI of 16.8 5. Acute cholestasis from patient's liver mets 6. DVT prophylaxis SC Lovenox Clinical Impression(s) from Imaging Studies Abdomen/Pelvis CT 12/27/18 11:06 IMPRESSION: Ascites. Hepatic metastasis. Sclerotic bone metastasis. Electronically Signed: Tyler Coleman, at 12:23 EDT , Service support , Code Visit Inpatient E&M: [id number] [facility] Hosp L3
[2018-12-28 07:49] LABS: Absolute Lymphocyte Count 1.13 X10^3/ul (0.83-4.51); Absolute Neutrophil Count 3.8 X10^3/uL (2.0-7.7); Eosinophil# 0.18 X10^3/uL; Eosinophils% 3.2 % (0-5); Hemoglobin 9.2 g/dl (12.0-15.0); Lymphocyte # 1.13 X10^3/ul (4.0); Lymphocyte % 20.1 % (19-41); Mean Corp Hgb Conc 35.4 g/gl (32-36); Mean Corpuscular Hgb 31.5 pg (27.0-32.0); Mean Platelet Vol. 9.2 fl (6.2-12.0); Monocyte# 0.55 X10^3/uL; Monocyte% 9.8 % (0-10); Neutrophil # 3.75 X10^3/uL (2.7-7.7); Neutrophil % 66.5 % (47-70); Platelet Count 128 K/mm3 (150-450); RBC Distribution Width CV 19.7 % (11.6-14.6); Red Blood Count 2.92 M/mm3 (4.2-5.4); White Blood Count 5.6 K/mm3 (4.4-11.0)
--- NOTE | 2018-12-28 08:05 | PCM.CONS.B ---
Problem List (1) Breast CA Status: Chronic Qualifiers: Breast location: overlapping sites of breast Estrogen receptor status: positive Patient sex: female Laterality: left Qualified Code(s): C50.812 - Malignant neoplasm of overlapping sites of left female breast; Z17.0 - Estrogen receptor positive status [ER+] (2) Liver metastases Status: Chronic (3) Ascites Status: Acute Qualifiers: Ascites type: malignant Qualified Code(s): R18.0 - Malignant ascites (4) Abdominal pain Status: Acute Qualifiers: Abdominal location: generalized Qualified Code(s): R10.84 - Generalized abdominal pain Comment: Suspect bacterial peritonitis vs related to cancer progression - Consult Date of Consult: 12/28/[address] Joya regarding patient known to me with metastatic breast cancer and extensive liver metastasis and bone metastasis. My final recommendation will be communicated to Dr. Perkins and also by electronic medical records. - Reason for Consult History of Present Illness Date of Admission: 12/27/18 Chief Complaint: Generalized abdominal pain The patient is a 53 year old F with past medical history significant for stage III left ER positive HER-2 negative breast CA after 10-year remission. Patient had a recurrence of her breast cancer 2 years ago with bone metastasis. She was previously treated with Faslodex and Ibrance. She was diagnosed with metastasis to the liver in spring 2018 subsequent ascites & jaundice. She started palliative chemotherapy with Capcitibine about 2 weeks ago. Patient has undergone therapeutic paracentesis on 12/22/2018. She presented to the emergency department with history of significant abdominal pain x 24 hours. She experience increased diarrhea and not able to eat anything since Tuesday. She also have chills and possible fever the day before. A presumptive diagnosis of peritonitis was made started on meropenem and admitted to regular nursing floor for further management. Imaging studies obtained in the ED demonstrated ascites as well as hepatic metastasis, with finding consistent with cirrhosis and sclerotic bone mets. Chemotherapy was stopped because of diarrhea and anorexia. Past Medical History Past Medical History (Chronic Problems): Chronic Problems Breast CA (Chronic) Liver metastases (Chronic) Ascites (Chronic) Allergies No Known Allergies Allergy (Verified 12/27/18 10:48) Home Medications: Ambulatory Orders Medication Instructions Recorded Capecitabine 1,500 mg PO BID 12/27/18 Cholecalciferol (VIT D3) [Vitamin 1,000 unit PO DAILY 12/27/18 D] Furosemide [Lasix] 20 mg PO QODAY 12/27/18 Hydrocodone/Acetaminophen 1 tab PO Q6H PRN PRN 12/27/18 [Hydrocodone-Acetamin 5-325 mg] Potassium Chloride [Klor-Con M20] 20 meq PO DAILY 12/27/18 Spironolactone 25 mg PO DAILY 12/27/18 Zolpidem Tartrate 5 mg PO QHS PRN PRN 12/27/18 Smoking Status: Former smoker - *Family History Maternal History Items: Cancer - Breast cancer Review of Systems Constitutional: Reports: Anorexia, Malaise, Weakness. Denies: Chills, Fever HEENT: Denies: Head Aches, Sinus Congestion, Sinus Drainage Cardiovascular: Denies: Chest Pain, Orthopnea, Palpitations, Paroxysmal Noc. Dyspnea Respiratory: Denies: Cough, Shortness of breath at rest, Shortness of breath upon exertion, Sputum production Gastrointestinal: Reports: Abdominal Pain. Denies: Hematemesis, Hematochezia Genitourinary: Denies: Dysuria, Frequency, Hematuria, Urgency Musculoskeletal: Denies: Joint Pain, Joint Tenderness Skin: Denies: Rash Neurological: Denies: Focal weakness, Numbness, Tingling Psychiatric: Denies: Homicidal Ideations, Suicidal Ideations Hematologic/ Lymphatic: Denies: Easy Bruising, Easy Bleeding Peritonitis (Acute) Abdominal pain (Acute) Objective: GENERAL: Appears frail looking HEENT: Atraumatic; EYES; Anicteric, jaundiced conjunctiva NECK; supple, normal thyroid, RESPIRATORY: Diminished to auscultation CARDIOVASCULAR: Regular S1 S2, GI: Colitis abdominal tenderness : No Renal angle tenderness; EXTREMITIES: No edema, no clubbing, MUSCULOSKELETAL: No Joint Tenderness; NEURO: Awake; no lateralizing signs. SKIN: Jaundiced PSYCH; Normal affect - Physical Exam Vital Signs - 24 hr Temp Pulse Pulse Pulse Resp Resp Resp 12/28/18 02:13 98.1 F 95 16 12/27/18 20:08 12/27/18 20:06 98.5 F 105 H 16 12/27/18 15:46 106 H 112 H 18 18 12/27/18 15:45 98.0 F 103 H 18 12/27/18 14:16 97.4 F L 98 16 12/27/18 10:46 98.4 F 99 16 BP BP BP Pulse Ox 12/28/18 02:13 125/70 H 97 12/27/18 20:08 98 12/27/18 20:06 127/71 H 98 12/27/18 15:46 132/70 H 125/71 H 12/27/18 15:45 118/72 95 12/27/18 14:16 125/70 H 95 12/27/18 10:46 119/82 H Weight: 44.452 kg Body Mass Index (BMI) 16.8 Laboratory Results 12/27/18 11:04: WBC 8.4, RBC 3.33 L, Hgb 10.4 L, Hct 30.0 L, MCV 90.1, MCH 31.2, MCHC 34.7, RDW 20.1 H, RDW Differential 63.6 H, Plt Count 155, MPV 9.3, Immature Gran % (Auto) 0.200, Neut % (Auto) 83.7 H, Lymph % (Auto) 9.4 L, [place] % (Auto) 6.0, Eos % (Auto) 0.7, Baso % (Auto) 0.0, Absolute Neuts (auto) 7.0, Absolute Lymphs (auto) 0.79 L, Total Counted Not Reportable, Differential Comment COMMENT 12/27/18 11:04: Sodium 136, Potassium 4.0, Chloride 101, Carbon Dioxide 25.0, Anion Gap 10, BUN 21 H, Creatinine 0.69, Estim Creat Clear Calc 66.93, Est GFR (MDRD) Af Amer 115, Est GFR (MDRD) Non-Af 95, BUN/Creatinine Ratio 30.5 H, Glucose 102, Calcium 8.6, Total Bilirubin 6.60 H, Direct Bilirubin 4.11 H, AST 71 H, ALT 70 H, Alkaline Phosphatase 402 H, Total Protein 5.4 L, Albumin 2.2 L, Globulin 3.2, Lipase 67 L 12/27/18 14:40: Lipase 61 L 12/27/18 15:36: Fluid Glucose 96 H, Fluid Total Protein 0.7, Fluid LDH 177 12/27/18 15:36: Fluid Source THORACENTESIS, Fluid Color YELLOW, Fluid Appearance CLOUDY, Fluid WBC 12.880, Fluid RBC 0.14319, Fluid Tot Cell Count 12.955 H, Fld Polynuclear WBCs # 11.096, Fld Polynuclear WBCs % 93.2, Fluid Mononuclear WBCs 0.805, Fld Mononuclear WBCs % 6.8, Fluid Neutrophils 86, Fluid Lymphocytes 1, Fluid Monocytes 13, Fl Pathologist Comment May follow, Fluid Comment 2 SEE COMMENT 12/28/18 01:27: Urine Color SEE COMMENT BELOW, Urine Clarity Sl. Cloudy, Urine pH 6.0, Ur Specific [place] 1.020, Urine Protein 30 H, Urine Glucose (UA) Normal, Urine Ketones 15 H, Urine Occult Blood 150 H, Urine Nitrite Positive H, Urine Bilirubin 3 H, Urine Urobilinogen 4 H, Ur Leukocyte Esterase 500 H, Urine RBC 5-10 SEEN, Urine WBC 5-10 SEEN, Ur Squamous Epith Cells 0-5 SEEN, Urine Bacteria RARE, Urine Mucus 0 SEEN 12/28/18 05:39: WBC 5.6, RBC 2.92 L, Hgb 9.2 L, Hct 26.0 L, MCV 89.0, MCH 31.5, MCHC 35.4, RDW 19.7 H, RDW Differential 62.0 H, Plt Count 128 L, MPV 9.2, Immature Gran % (Auto) 0.400, Neut % (Auto) 66.5, Lymph % (Auto) 20.1, [place] % (Auto) 9.8, Eos % (Auto) 3.2, Baso % (Auto) 0.0, Absolute Neuts (auto) 3.8, Absolute Lymphs (auto) 1.13, Total Counted Pending 12/28/18 05:39: Sodium 138, Potassium 3.8, Chloride 106, Carbon Dioxide 25.0, Anion Gap 7, BUN 17, Creatinine 0.53 L, Estim Creat Clear Calc 88.38, Est GFR (MDRD) Af Amer 157, Est GFR (MDRD) Non-Af 130, BUN/Creatinine Ratio 32.3 H, Glucose 120 H, Calcium 7.8 L, Magnesium 2.0 CT abdomen pelvis: Extensive hepatic metastasis with sclerotic changes and ascites. Sclerotic changes in the bone consistent with metastatic disease. Assessment/Plan All Active Problems Peritonitis (Acute) Abdominal pain (Acute) Metastatic breast cancer with bone and liver metastasis (Chronic) Mrs. Bass is a 53-year-old lady with history of metastatic breast cancer presented with acute abdominal pain; extensive liver metastasis with cirrhotic changes and bone metastasis. She has minimal improvement from palliative chemotherapy thus far with excessive toxicity including diarrhea and anorexia. However, there is minor improvement in her liver function including decrease in her bilirubin since starting chemotherapy. Her overall prognosis is very poor. Whether she has acute bacterial peritonitis versus progression of metastatic breast cancer; she will need pain and symptom management before going home. Plan: -Continue cefepime pending blood and fluid cultures -Continue to hold chemotherapy -Xeloda -Consult palliative care medicine for evaluation pain and symptom management -Checking stool culture C. difficile toxin and continue Imodium for diarrhea. -Nutritional therapy -Patient is DNR CCA I am not certain that we will be able to restart palliative chemotherapy at this time if her condition does not improve with progressive weight loss, anorexia, decreased performance status and liver failure. cc: Dr. Sai Nguyen; Dr. Sai Benjamin, Dr. Sudeep Grove
[2018-12-28 08:13] LABS: Differential Indicated SCAN CRITERIA MET; POSITIVE COUNT NO; POSITIVE DIFFERENTIAL NO; POSITIVE MORPHOLOGY YES
[2018-12-28 08:47] LABS: Differential Comment SCANNED
[2018-12-28 08:48] VITALS: BP 111/61; PULSE 92; RESP 16; TEMP 36.8; O2SAT 97
[2018-12-28] MEDS: 0.9% NaCl Peripheral Flush Adult/Peds IV (09:03)
[2018-12-28 14:12] VITALS: BP 148/74; PULSE 94; RESP 14; TEMP 36.4; O2SAT 97
[2018-12-28 21:14] VITALS: BP 140/74; PULSE 99; RESP 18; TEMP 35.9; O2SAT 98
[2018-12-28] MEDS: Zolpidem Tartrate 5 MG Tablet PO (21:26)
[2018-12-29] MEDS: Dextrose 5%/0.9% NaCl 1,000 ML 100 ML IV ×3 (00:05→21:33)
[2018-12-29 03:39] VITALS: BP 139/82; PULSE 91; RESP 16; TEMP 35.8; O2SAT 97
[2018-12-29] MEDS: Morphine 4 MG/ML Syringe IV ×5 (03:54→20:52)
[2018-12-29] MEDS: 0.9% NaCl Peripheral Flush Adult/Peds IV ×4 (03:54→20:54)
[2018-12-29] MEDS: Enoxaparin 40 MG/0.4 ML Syringe SC (06:18)
--- NOTE | 2018-12-29 07:10 | PN_ITS ---
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 Patient remains on cefepime pending final identification and sensitivity. Stool for C. difficile came back negative. Patient however continues to experience loose bowel movement. 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 difficile DNA Amplification - Final Objective: GENERAL: Appears frail looking HEENT: Atraumatic; EYES; Anicteric, jaundiced conjunctiva NECK; supple, normal thyroid, RESPIRATORY: Diminished to auscultation CARDIOVASCULAR: Regular S1 S2, GI: Colitis abdominal tenderness : No Renal angle tenderness; EXTREMITIES: No edema, no clubbing, MUSCULOSKELETAL: No Joint Tenderness; NEURO: Awake; no lateralizing signs. SKIN: Jaundiced PSYCH; Normal affect Vitals/I&O's: Vital Signs Temp Pulse Resp BP Pulse Ox 96.4 F L 91 16 139/82 H 97 12/29/18 03:39 12/29/18 03:39 12/29/18 03:39 12/29/18 03:39 12/29/18 03:39 Oxygen Delivery Method [2] Room Air Oxygen Delivery Method [1 ( Room Air Initial Baseline)] Oxygen Delivery Method Room Air Weight: 45.087 kg Body Mass Index (BMI) 17.0 Intake and Output for Last 24 Hours 12/27/18 12/28/18 12/29/18 23:59 23:59 23:59 Intake Total 368 / 368 2445 / 3321 2484 / 2484 Output Total 841 / 841 Balance 368 / 368 1604 / 2480 2484 / 2484 Microbiology Past 72 Hours 12/27/18 15:36 Fluid - Paracentesis (Abd) Gram Stain - Final 12/27/18 15:36 Fluid - Paracentesis (Abd) Body Fluid Culture - Preliminary 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 difficile DNA Amplification - Final Laboratory Results 12/28/18 05:39: WBC 5.6, RBC 2.92 L, Hgb 9.2 L, Hct 26.0 L, MCV 89.0, MCH 31.5, MCHC 35.4, RDW 19.7 H, RDW Differential 62.0 H, Plt Count 128 L, MPV 9.2, Im mature Gran % (Auto) 0.400, Neut % (Auto) 66.5, Lymph % (Auto) 20.1, [place] % (Auto) 9.8, Eos % (Auto) 3.2, Baso % (Auto) 0.0, Absolute Neuts (auto) 3.8, Absolute Lymphs (auto) 1.13, Total Counted Not Reportable, Differential Comment SCANNED 12/28/18 05:39: Sodium 138, Potassium 3.8, Chloride 106, Carbon Dioxide 25.0, Anion Gap 7, BUN 17, Creatinine 0.53 L, Estim Creat Clear Calc 88.38, Est GFR (MDRD) Af Amer 157, Est GFR (MDRD) Non-Af 130, BUN/Creatinine Ratio 32.3 H, Glucose 120 H, Calcium 7.8 L, Magnesium 2.0 Current Medications Hydrocodone Bitart/Acetaminophen ([place] 5mg-325mg) 1 tablet PO Q6H PRN PRN PRN Reason: PAIN Al Hydroxide/Mg Hydroxide (Mylanta Ii) 30 ml PO Q6H PRN PRN PRN Reason: Gastric Burning Cholecalciferol (Vitamin D) 1,000 unit PO DAILY [facility] Last Admin: 12/28/18 08:51 Dose: Not Given Documented by: Enoxaparin Sodium (Lovenox) 40 mg SC DAILY@0600 [facility] Last Admin: 12/29/18 06:18 Dose: 40 mg Documented by: Furosemide (Lasix) 20 mg PO QODAY [facility] Guaifenesin (Robitussin) 20 ml PO Q4H PRN PRN PRN Reason: COUGH Sodium Chloride () 1,000 mls @ 0 mls/hr IV .Q0M [facility] Last Admin: 12/27/18 11:42 Dose: 15 mls/hr Documented by: Cefepime HCl 1 gm/ Sodium (Chloride) 50 mls @ 100 mls/hr IV Q8 [facility] Last Admin: 12/29/18 06:18 Dose: 100 mls/hr Documented by: Dextrose/Sodium Chloride (Dextrose 5%/0.9% Nacl) 1,000 mls @ 100 mls/hr IV .Q10H TONJA Last Admin: 12/29/18 00:05 Dose: 100 mls/hr Documented by: Sodium Chloride () 250 mls @ 15 mls/hr IV .[id number] PRN PRN Reason: SALINE FLUSH Magnesium Hydroxide (Milk Of Magnesia) 30 ml PO DAILY PRN PRN PRN Reason: Constipation Morphine Sulfate () 4 mg IV Q3H PRN PRN PRN Reason: Severe pain (7-10/10) Last Admin: 12/29/18 06:49 Dose: 4 mg Documented by: Nutritional Formula (Lactose Free) (Ensure Enlive) 120 ml PO 4X/DAY [facility] Last Admin: 12/28/18 21:32 Dose: Not Given Documented by: Ondansetron HCl (Zofran) 4 mg IV Q6H PRN PRN PRN Reason: NAUSEA/VOMITING Oxycodone HCl (Oxyir) 5 mg PO Q4H PRN PRN PRN Reason: Moderate Pain (4-6/10) Potassium Chloride (K-Dur) 20 meq PO DAILY [facility] Last Admin: 12/28/18 08:51 Dose: Not Given Documented by: Sodium Chloride () 10 - 40 ml IV UD PRN PRN Reason: SALINE FLUSH Last Admin: 12/29/18 03:54 Dose: 10 ml Documented by: Spironolactone (Aldactone) 25 mg PO DAILY [facility] Last Admin: 12/28/18 08:50 Dose: Not Given Documented by: Zolpidem Tartrate (Ambien (Generic)) 5 mg PO QHS PRN PRN PRN Reason: insomnia Last Admin: 12/28/18 21:26 Dose: 5 mg Documented by: Medical Necessity - Tobacco Use Smoking Status: Current some day smoker Tobacco Use: Cigarettes Assessment/Plan All Active Problems Ascites (Acute) Peritonitis (Acute) Abdominal pain (Acute) Patient is a 53-year-old lady with history of metastatic breast cancer presented with abdominal pain 1. Abdominal pain secondary to bacterial peritonitis following patient recent therapeutic paracentesis performed on 12/22/2018. 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 Patient remains on cefepime pending final identification and sensitivity. Case was discussed with patient's oncologist recommendation is to obtain infectious disease consultation 2. Acute diarrhea noted enteric pathogen panel as well as stool for C. difficile. Stool studies unremarkable ~ 12/29/2018 Stool for C. difficile came back negative. Patient however continues to experience loose bowel movement. Single dose of Imodium 4 mg x 1 was given for symptom control 3. Recurrent breast CA with mets to the bone and liver patient is managed by Dr. Grove; case discussed with him ~ 12/29/2018; patient's oncologist recommended to obtain consultation with hospice/palliative care team 4. Severe protein calorie malnutrition as evidenced by muscle wasting, decreased energy level and low BMI of 16.8 5. Acute cholestasis from patient's liver mets 6. DVT prophylaxis SC Lovenox Clinical Impression(s) from Imaging Studies Abdomen/Pelvis CT 12/27/18 11:06 IMPRESSION: Ascites. Hepatic metastasis. Sclerotic bone metastasis. Electronically Signed: Tyler Coleman, at 12:23 EDT , Service support , Code Visit Inpatient E&M: [id number] Subs Hosp L2
--- NOTE | 2018-12-29 08:02 | PN_ITS ---
Progress Note Hematology oncology consult progress note: Patient still has abdominal distention and pain today. She has no nausea or vomiting, still loose stool. No fever overnight, peritoneal fluid culture came back positive for gram- negative rods, lactose fermenting. I personally reviewed CT scan of the abdomen consistent with worsening cirrhosis and possible metastatic breast cancer. 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 difficile DNA Amplification - Final Stool Laboratory Tests Past 24 Hrs 12/28/18 05:39 WBC 5.6 RBC 2.92 L Hgb 9.2 L Hct 26.0 L MCV 89.0 MCH 31.5 MCHC 35.4 RDW 19.7 H RDW Differential 62.0 H Plt Count 128 L MPV 9.2 Immature Gran % (Auto) 0.400 Neut % (Auto) 66.5 Lymph % (Auto) 20.1 [place] % (Auto) 9.8 Eos % (Auto) 3.2 Baso % (Auto) 0.0 Absolute Neuts (auto) 3.8 Absolute Lymphs (auto) 1.13 Total Counted Not Reportable Differential Comment SCANNED IMPRESSION/PLAN: Mrs. Bass is a 53-year-old lady with history of metastatic breast cancer presented with acute abdominal pain; extensive liver metastasis with cirrhotic changes and bone metastasis. She has minimal improvement from palliative chemotherapy thus far with excessive toxicity including diarrhea and anorexia. Now present with spontaneous bacterial peritonitis secondary to liver failure and possible chemotherapy related. She is not a candidate for further palliative chemotherapy treatment, because of her limited prognosis. Mrs. Bass also expressed her wishes to improve quality of life versus extending her life at this time. Plan: -CHOP chemotherapy -Xeloda -Consult palliative care medicine for evaluation pain and symptom management -Consult infectious disease for spontaneous bacterial peritonitis -Nutritional therapy -Repeat pro time/INR & tumor marker CA27.29 prognosticate her liver disease and breast cancer diagnosis -Patient is DNR CCA -Return to my office next week with family for family conference regarding hospice admission. cc: Dr. Sai Nguyen; Dr. Sai Benjamin, Dr. Sudeep Grove
[2018-12-29 08:55] VITALS: BP 138/87; PULSE 106; RESP 16; TEMP 36.3; O2SAT 96
[2018-12-29] MEDS: Spironolactone 25 MG Tablet PO (09:00)
[2018-12-29] MEDS: Loperamide 2 MG Capsule 4 MG PO (10:08)
[2018-12-29] MEDS: Furosemide 20 MG Tablet PO (10:09)
[2018-12-29 10:11] VITALS: PULSE 100
[2018-12-29 10:40] LABS: International Normalized Ratio 1.7; Prothrombin Time (Protime)PT. 19.8 SECONDS (11.7-14.9)
--- NOTE | 2018-12-29 11:18 | CASEMGMT ---
Social Work Note SW updated that Dr. Grove ordered Palliative Care/Hospice referral for pt. SW met with pt, introduced self and role at [facility]. Pt is alert and orientated x4. Pt has guest present in room and gave this worker permission to speak to her in front of her room. Pt confirms that she was made aware of Palliative Care referral and is agreeable to referral. SW explained that this worker can make referral and pt states that Hospice may contact pt in regards to arranging meeting time. VIPUL placed a call to [facility] and Per Klaudia [facility] goes to [facility]. VIPUL provided Palliative Care Referral to Natalie at [facility]. SW faxed referral. Plan: Palliative care to meet with pt Alison Brewer PERSONAL BANKER, DERRICK BOAT CAPTAIN
--- NOTE | 2018-12-29 13:49 | PCM.HP.ID ---
Problem List (1) Peritonitis Status: Acute Reason for Consult: SBP Consulted by: Dr. Nguyen History of Present Illness: The patient is a 53 year old F with metastatic breast cancer, presented with sudden onset 7/2 of diffuse sharp severe abd pain associated with some nausea, shakes, chills. Had recent paracentesis, no issues at the procedure site. No port in place. Came to ED, admitted on cefepime, feeling better now. Full ROS performed and neg except as noted above. - Medical History Past Medical History (Chronic Problems): Chronic Problems Breast CA (Chronic) Liver metastases (Chronic) Allergies/Adverse Reactions: Allergies No Known Allergies Allergy (Verified 12/27/18 10:48) Home Medications: Ambulatory Orders Medication Instructions Recorded Capecitabine 1,500 mg PO BID 12/27/18 Cholecalciferol (VIT D3) [Vitamin 1,000 unit PO DAILY 12/27/18 D] Furosemide [Lasix] 20 mg PO QODAY 12/27/18 Hydrocodone/Acetaminophen 1 tab PO Q6H PRN PRN 12/27/18 [Hydrocodone-Acetamin 5-325 mg] Potassium Chloride [Klor-Con M20] 20 meq PO DAILY 12/27/18 Spironolactone 25 mg PO DAILY 12/27/18 Zolpidem Tartrate 5 mg PO QHS PRN PRN 12/27/18 - Social History SMOKING STATUS:: Current every day smoker Vital Signs Temp Pulse Resp BP Pulse Ox 97.3 F L 100 16 138/87 H 96 12/29/18 08:55 12/29/18 10:11 12/29/18 08:55 12/29/18 08:55 12/29/18 08:55 Oxygen Delivery Method [2] Room Air Oxygen Delivery Method [1 ( Room Air Initial Baseline)] Oxygen Delivery Method Room Air Weight: 45.087 kg Body Mass Index (BMI) 17.0 Microbiology Past 72 Hours 12/28/18 08:31 Enteric Bacteriology - Final Stool 12/27/18 15:36 Gram Stain - Final Fluid - Paracentesis (Abd) Body Fluid Culture - Preliminary Escherichia coli Yeast Like Organism 12/28/18 08:20 C. difficile DNA Amplification - Final Stool Laboratory Tests Past 24 Hrs 12/29/18 12/29/18 10:20 10:20 PT 19.8 H INR 1.7 CA 27-29 Pending - Other Studies Radiology: [] reviewed Other Studies: [] Route of nutrition/ use of supplements: [] Nutritional Intake: [] IV Site: [] Rocha Catheter: [] - Physical Exam General: Alert, Oriented x3, Cooperative, No apparent distress HEENT: Atraumatic, PERRLA, EOMI, - - thrush present Neck: Supple, No Nodes Lungs: Clear to auscultation, Normal air movement Cardiovascular: Regular rate, Regular Rhythm, No murmurs Abdomen: Soft, Non-Distended, Distended Extremities: No edema Skin: No rashes IV Site: Peripheral, without redness Musculoskeletal: No Tenderness to Palpation of Joints or Extremities Neurological: Cranial nerves II-XII grossly intact - Assessment/Plan Antibiotics: [] Assessment/Plan: [] Active and Suspected Problems Ascites (Acute) Peritonitis (Acute) Abdominal pain (Acute) Suspect bacterial peritonitis vs related to cancer progression SBP related to malignancy - cx with ecoli and c.albicans. Also with thrush on exam. Narrow abx to ceftriaxone, plan on 5 day course total of iv abx, stop date 12/31/18. After that point, can stay on cipro 500mg daily for secondary prophylaxis. Thrush - will start 10 day course of fluconazole. Will follow, d/w Dr. Nguyen, thank you.
[2018-12-29 14:08] VITALS: BP 155/93; PULSE 107; PULSE 90; RESP 18; TEMP 36.3; O2SAT 95
--- NOTE | 2018-12-29 14:35 | CHAPLAIN ---
Type of Pastoral Visit _x__ Initial Visit ___ Follow-up Visit ___ On-call Visit ___ General Patient Visit ___ Spiritual Assessment ___ Family Conference ___ Bereavement ___ Rapid Response ___ Code Blue ___ Other (describe below) Pastoral Care Referral From _x__ Patient ___ Family ___ Nurse ___ Physician ___ Drink Mixer ___ Event Executive ___ Other (describe below) Sacrament/Intervention _x__ Active listening ___ Anointing ___ Bahai ___ Bereavement ___ Communion _x__ Fang exploration ___ _x__ Life review _x__ Prayer ___ Reconciliation ___ Sacrament of Sick _x__ Supportive presence ___ Wedding ___ Other (describe below) Pastoral Comments
[2018-12-29 20:58] VITALS: BP 141/79; PULSE 100; RESP 16; TEMP 36.7; O2SAT 98
[2018-12-29] MEDS: Zolpidem Tartrate 5 MG Tablet PO (22:33)
[2018-12-30] MEDS: Morphine 4 MG/ML Syringe IV ×5 (02:19→22:18)
[2018-12-30] MEDS: 0.9% NaCl Peripheral Flush Adult/Peds IV ×3 (02:20→22:18)
[2018-12-30 04:43] VITALS: BP 139/81; PULSE 96; RESP 16; TEMP 36.8; O2SAT 100
[2018-12-30] MEDS: Enoxaparin 40 MG/0.4 ML Syringe SC (06:56)
[2018-12-30] MEDS: Dextrose 5%/0.9% NaCl 1,000 ML 100 ML IV (06:58)
[2018-12-30 07:07] LABS: Absolute Lymphocyte Count 1.24 X10^3/ul (0.83-4.51); Absolute Neutrophil Count 2.4 X10^3/uL (2.0-7.7); Basophil# 0.01 X10^3/uL; Basophil% 0.2 % (0-1); Eosinophil# 0.21 X10^3/uL; Hematocrit 27.6 % (37-47); Hemoglobin 9.5 g/dl (12.0-15.0); Lymphocyte # 1.24 X10^3/ul (4.0); Lymphocyte % 23.7 % (19-41); Mean Corp Hgb Conc 34.4 g/gl (32-36); Mean Corpuscular Hgb 31.4 pg (27.0-32.0); Mean Corpuscular Volume 91.1 fL (81-99); Mean Platelet Vol. 9.2 fl (6.2-12.0); Monocyte# 1.33 X10^3/uL; Monocyte% 25.4 % (0-10); Neutrophil # 2.44 X10^3/uL (2.7-7.7); Neutrophil % 46.5 % (47-70); Platelet Count 132 K/mm3 (150-450); RBC Distribution Width CV 21.5 % (11.6-14.6); RBC Distribution Width SD 62.5 fl (35.1-43.9); Red Blood Count 3.03 M/mm3 (4.2-5.4); White Blood Count 5.2 K/mm3 (4.4-11.0)
[2018-12-30 07:16] LABS: Differential Indicated SCAN CRITERIA MET; POSITIVE COUNT NO; POSITIVE DIFFERENTIAL NO; POSITIVE MORPHOLOGY YES
--- NOTE | 2018-12-30 07:27 | PCM.PN.HOSP ---
Patient Problems: Active and Suspected Problems Ascites (Acute) Peritonitis (Acute) Abdominal pain (Acute) Suspect bacterial peritonitis vs related to cancer progression Subjective: Patient seen pain is relatively well controlled she however complains of throat pain as well as difficulty swallowing. She was seen in consultation by Dr. Patterson with ID who adjusted patient antibiotic therapy Objective: GENERAL: Appears frail looking HEENT: Atraumatic; EYES; Anicteric, jaundiced conjunctiva NECK; supple, normal thyroid, RESPIRATORY: Diminished to auscultation CARDIOVASCULAR: Regular S1 S2, GI: Colitis abdominal tenderness : No Renal angle tenderness; EXTREMITIES: No edema, no clubbing, MUSCULOSKELETAL: No Joint Tenderness; NEURO: Awake; no lateralizing signs. SKIN: Jaundiced PSYCH; Normal affect Vitals/I&O's: Vital Signs Temp Pulse Resp BP Pulse Ox 98.3 F 96 16 139/81 H 100 12/30/18 04:43 12/30/18 04:43 12/30/18 04:43 12/30/18 04:43 12/30/18 04:43 Oxygen Delivery Method [2] Room Air Oxygen Delivery Method [1 ( Room Air Initial Baseline)] Oxygen Delivery Method Room Air Weight: 45.087 kg Body Mass Index (BMI) 17.0 Intake and Output for Last 24 Hours 12/28/18 12/29/18 12/30/18 23:59 23:59 23:59 Intake Total 2445 / 3321 8536 / 9691 1927 Output Total 841 / 841 Balance 1604 / 2480 8536 / 9691 1927 Microbiology Past 72 Hours 12/28/18 08:31 Stool Enteric Bacteriology - Final 12/27/18 15:36 Fluid - Paracentesis (Abd) Gram Stain - Final 12/27/18 15:36 Fluid - Paracentesis (Abd) Body Fluid Culture - Preliminary Escherichia coli Yeast Like Organism 12/28/18 08:20 Stool C. difficile DNA Amplification - Final Laboratory Results 12/29/18 10:20: PT 19.8 H, INR 1.7 12/29/18 10:20: CA 27-29 Pending 12/30/18 06:50: WBC 5.2, RBC 3.03 L, Hgb 9.5 L, Hct 27.6 L, MCV 91.1, MCH 31.4, MCHC 34.4, RDW 21.5 H, RDW Differential 62.5 H, Plt Count 132 L, MPV 9.2, Immature Gran % (Auto) 0.200, Neut % (Auto) 46.5 L, Lymph % (Auto) 23.7, [place] % (Auto) 25.4 H, Eos % (Auto) 4.0, Baso % (Auto) 0.2, Absolute Neuts (auto) 2.4, Absolute Lymphs (auto) 1.24, Total Counted Pending 12/30/18 06:50: Sodium Pending, Potassium Pending, Chloride Pending, Carbon Dioxide Pending, Anion Gap Pending, BUN Pending, Creatinine Pending, Est GFR (MDRD) Af Amer Pending, Est GFR (MDRD) Non-Af Pending, BUN/Creatinine Ratio Pending, Glucose Pending, Calcium Pending, Magnesium Pending, Total Bilirubin Pending, Direct Bilirubin Pending, AST Pending, ALT Pending, Alkaline Phosphatase Pending, Total Protein Pending, Albumin Pending Current Medications Hydrocodone Bitart/Acetaminophen ([place] 5mg-325mg) 1 tablet PO Q6H PRN PRN PRN Reason: PAIN Al Hydroxide/Mg Hydroxide (Mylanta Ii) 30 ml PO Q6H PRN PRN PRN Reason: Gastric Burning Cholecalciferol (Vitamin D) 1,000 unit PO DAILY [facility] Last Admin: 12/29/18 09:00 Dose: 1,000 unit Documented by: Enoxaparin Sodium (Lovenox) 40 mg SC DAILY@0600 [facility] Last Admin: 12/30/18 06:56 Dose: 40 mg Documented by: Furosemide (Lasix) 20 mg PO QODAY [facility] Last Admin: 12/29/18 10:09 Dose: 20 mg Documented by: Guaifenesin (Robitussin) 20 ml PO Q4H PRN PRN PRN Reason: COUGH Sodium Chloride () 1,000 mls @ 0 mls/hr IV .Q0M [facility] Last Admin: 12/27/18 11:42 Dose: 15 mls/hr Documented by: Dextrose/Sodium Chloride (Dextrose 5%/0.9% Nacl) 1,000 mls @ 100 mls/hr IV .Q10H [facility] Last Admin: 12/30/18 06:58 Dose: 100 mls/hr Documented by: Sodium Chloride () 250 mls @ 15 mls/hr IV .[id number] PRN PRN Reason: SALINE FLUSH Ceftriaxone Sodium 2 gm/ (Sodium Chloride) 50 mls @ 100 mls/hr IV Q24 [facility] Last Admin: 12/29/18 14:07 Dose: 100 mls/hr Documented by: Fluconazole (Diflucan) 100 mg in 50 mls @ 50 mls/hr IV Q24H TONJA Magnesium Hydroxide (Milk Of Magnesia) 30 ml PO DAILY PRN PRN PRN Reason: Constipation Morphine Sulfate () 4 mg IV Q3H PRN PRN PRN Reason: Severe pain (7-10/10) Last Admin: 12/30/18 07:03 Dose: 4 mg Documented by: Nutritional Formula (Lactose Free) (Ensure Enlive) 120 ml PO 4X/DAY [facility] Last Admin: 12/29/18 20:58 Dose: Not Given Documented by: Ondansetron HCl (Zofran) 4 mg IV Q6H PRN PRN PRN Reason: NAUSEA/VOMITING Oxycodone HCl (Oxyir) 5 mg PO Q4H PRN PRN PRN Reason: Moderate Pain (4-6/10) Potassium Chloride (Potassium Chl Soln) 20 meq PO DAILY [facility] Last Admin: 12/29/18 12:15 Dose: 20 meq Documented by: Sodium Chloride () 10 - 40 ml IV UD PRN PRN Reason: SALINE FLUSH Last Admin: 12/30/18 07:03 Dose: 10 ml Documented by: Spironolactone (Aldactone) 25 mg PO DAILY [facility] Last Admin: 12/29/18 09:00 Dose: 25 mg Documented by: Zolpidem Tartrate (Ambien (Generic)) 5 mg PO QHS PRN PRN PRN Reason: insomnia Last Admin: 12/29/18 22:33 Dose: 5 mg Documented by: Medical Necessity - Tobacco Use Smoking Status: Current some day smoker Tobacco Use: Cigarettes Assessment/Plan All Active Problems Ascites (Acute) Peritonitis (Acute) Abdominal pain (Acute) Patient is a 53-year-old lady with history of metastatic breast cancer presented with abdominal pain 1. Abdominal pain secondary to bacterial peritonitis following patient recent therapeutic paracentesis performed on 12/22/2018. 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 Patient remains on cefepime pending final identification and sensitivity. Case was discussed with patient's oncologist recommendation is to obtain infectious disease consultation 12/30/2018: Cefepime discontinued on 12/29/2018 patient started on Rocephin scheduled to receive her last dose on 12/31/2018. Patient will be discharged home on a prophylactic dose of ciprofloxacin 2. Acute diarrhea noted enteric pathogen panel as well as stool for C. difficile. Stool studies unremarkable ~ 12/29/2018 Stool for C. difficile came back negative. Patient however continues to experience loose bowel movement. Single dose of Imodium 4 mg x 1 was given for symptom control 3. Recurrent breast CA with mets to the bone and liver patient is managed by Dr. Grove; case discussed with him ~ 12/29/2018; patient's oncologist recommended to obtain consultation with hospice/palliative care team 4. Severe protein calorie malnutrition as evidenced by muscle wasting, decreased energy level and low BMI of 16.8 5. Acute cholestasis from patient's liver mets 6. Candidiasis patient is on Diflucan 7. DVT prophylaxis SC Lovenox Code Visit Inpatient E&M: [id number] Subs Hosp L2
[2018-12-30 07:33] LABS: AST(SGOT) 36 U/L (15-37); Alanine Aminotransfer ALT/SGPT 41 U/L (13-56); Albumin, Serum 1.7 g/dL (3.2-5.0); Alkaline Phosphatase 300 U/L (45-117); Anion Gap 8 (5-15); BUN 11 mg/dL (7-18); BUN/Creat Ratio 21.8 RATIO (10-20); Bilirubin, Direct 2.54 mg/dL (0.00-0.30); Calcium,Total 7.1 mg/dL (8.5-10.1); Chloride 107 mmol/L (98-107); EST Glomerular Filtration Rate 136 mL/min (>60); Est Glom Filt Rate - Afr Amer 165 mL/min (>60); Estimated Creatinine Clearance 93.68 ml/min; Glucose 98 mg/dL (74-106); Magnesium 1.9 mg/dL (1.6-2.6); Potassium 2.9 mmol/L (3.5-5.1); Protein, Total 4.7 g/dL (6.4-8.2); Sodium Level 138 mmol/L (136-145)
[2018-12-30 08:25] LABS: Anisocytosis 2+; Differential Comment SCANNED; Macrocytosis 1+; Polychromasia 1+; Target Cells 1+
[2018-12-30 09:14] VITALS: BP 145/69; PULSE 93; RESP 16; RESP 18; TEMP 36.8; O2SAT 100
[2018-12-30] MEDS: Spironolactone 25 MG Tablet PO (10:58)
[2018-12-30 16:46] VITALS: BP 152/80; PULSE 95; RESP 18; TEMP 37.1; O2SAT 100
[2018-12-30 22:10] VITALS: BP 149/86; PULSE 92; RESP 18; TEMP 36.6; O2SAT 100
[2018-12-31] MEDS: Mag Hydrox/Al Hydrox/Simeth 30 ML UDC PO (01:14)
[2018-12-31 01:16] VITALS: BP 169/94; PULSE 100; RESP 18; TEMP 36.7; O2SAT 98
[2018-12-31] MEDS: Morphine 4 MG/ML Syringe IV (06:05)
[2018-12-31] MEDS: Enoxaparin 40 MG/0.4 ML Syringe SC (06:05)
[2018-12-31 07:22] LABS: Anion Gap 7 (5-15); BUN 20 mg/dL (7-18); BUN/Creat Ratio 23.5 RATIO (10-20); Chloride 107 mmol/L (98-107); Creatinine, Serum 0.85 mg/dL (0.55-1.02); EST Glomerular Filtration Rate 74 mL/min (>60); Est Glom Filt Rate - Afr Amer 90 mL/min (>60); Estimated Creatinine Clearance 55.11 ml/min; Glucose 98 mg/dL (74-106); Potassium 3.9 mmol/L (3.5-5.1); Sodium Level 137 mmol/L (136-145)
[2018-12-31 07:24] LABS: Absolute Lymphocyte Count 1.07 X10^3/ul (0.83-4.51); Absolute Neutrophil Count 6.4 X10^3/uL (2.0-7.7); Basophil# 0.04 X10^3/uL; Basophil% 0.4 % (0-1); Eosinophil# 0.47 X10^3/uL; Eosinophils% 5.1 % (0-5); Hematocrit 36.6 % (37-47); Lymphocyte # 1.07 X10^3/ul (4.0); Lymphocyte % 11.7 % (19-41); Mean Corp Hgb Conc 32.8 g/gl (32-36); Mean Corpuscular Hgb 29.7 pg (27.0-32.0); Mean Corpuscular Volume 90.6 fL (81-99); Mean Platelet Vol. 10.3 fl (6.2-12.0); Monocyte# 1.07 X10^3/uL; Monocyte% 11.7 % (0-10); Neutrophil # 6.44 X10^3/uL (2.7-7.7); Neutrophil % 70.6 % (47-70); Platelet Count 90 K/mm3 (150-450); RBC Distribution Width CV 18.3 % (11.6-14.6); Red Blood Count 4.04 M/mm3 (4.2-5.4); White Blood Count 9.1 K/mm3 (4.4-11.0)
[2018-12-31 07:25] LABS: POSITIVE COUNT NO; POSITIVE DIFFERENTIAL NO; POSITIVE MORPHOLOGY NO
[2018-12-31 08:39] VITALS: BP 172/86; PULSE 100; RESP 18; TEMP 36.6; O2SAT 98
--- NOTE | 2018-12-31 09:14 | DCINST_ITS ---
- Discharge Diagnoses Current Active Problems: Current Active and Chronic Problems Breast CA (Chronic) Liver metastases (Chronic) Ascites (Acute) Peritonitis (Acute) Abdominal pain (Acute) Suspect bacterial peritonitis vs related to cancer progression You will use the following diet at home:: No restrictions Discharge Activity: Return to Normal Activity, May not drive while taking narcotic pain medications. Allergies/Adverse Reactions: Allergies No Known Allergies Allergy (Verified 12/27/18 10:48) Medications to take at Discharge Capecitabine 1,500 mg PO BID 12/27/18 Cholecalciferol (VIT D3) [Vitamin D3] 1,000 unit PO DAILY 12/27/18 Furosemide [Lasix] 20 mg PO QODAY 12/27/18 Potassium Chloride [Klor-Con M20] 20 meq PO DAILY 12/27/18 Spironolactone 25 mg PO DAILY 12/27/18 Zolpidem Tartrate 5 mg PO QHS PRN PRN 12/27/18 Ciprofloxacin 500 mg PO DAILY #200 ml 12/31/18 Nystatin 500,000U/5ML [Mycostatin] 5 ml PO 4X/DAY #200 ml 12/31/18 Ondansetron [Ondansetron Odt] 8 mg PO 4X/DAY PRN PRN #30 tab.rapdis 12/31/18 Oxycodone [Oxyfast] 10 mg PO Q4H PRN PRN 5 Days #10 ml 12/31/18 The following prescriptions were given: Ciprofloxacin 500 mg PO DAILY #200 ml Prescription Printed Nystatin 500,000U/5ML [Mycostatin] 5 ml PO 4X/DAY #200 ml Prescription Printed Ondansetron [Ondansetron Odt] 8 mg PO 4X/DAY PRN PRN #30 tab.rapdis PRN Reason: Nausea/Vomiting Prescription Printed Oxycodone [Oxyfast] 10 mg PO Q4H PRN PRN 5 Days #10 ml PRN Reason: Pain Prescription Printed Primary Care Physician: Robert Bailon MD [Primary Care Provider] - Please follow up with your Primary Care Physician in: in 1-2 weeks Test Results: Test results from this visit will be discussed in further detail at your follow- up appointment, if applicable. Please Follow Up With: Sudeep Grove MD When: in 1 week Proposed Discharge Date: 12/31/18
--- NOTE | 2018-12-31 09:15 | PCM.DC.SUM ---
Discharge Date and Diagnosis - Problem List Patient Problems: Active and Suspected Problems Ascites (Acute) Peritonitis (Acute) Abdominal pain (Acute) Suspect bacterial peritonitis vs related to cancer progression Date of Admission: 12/27/18 Date of Discharge: 12/31/18 - Primary Discharge Diagnosis Active and Suspected Problems Ascites (Acute) Peritonitis (Acute) Abdominal pain (Acute) Suspect bacterial peritonitis vs related to cancer progression - Secondary Discharge Diagnosis Chronic Problems Breast CA (Chronic) Liver metastases (Chronic) Hospital Course and Treatment Imaging Results: Clinical Impression(s) from Imaging Studies Paracentesis Ultrasound 12/27/18 11:03 IMPRESSION: Ultrasound guided paracentesis. Electronically Signed: Tyler Coleman, at 9:25 EDT , Service support , Abdomen/Pelvis CT 12/27/18 11:06 IMPRESSION: Ascites. Hepatic metastasis. Sclerotic bone metastasis. Electronically Signed: Tyler Coleman, at 12:23 EDT , Service support , Summary of Care Provided: Patient is a 53-year-old lady with history of metastatic breast cancer presented with abdominal pain 1. Abdominal pain secondary to bacterial peritonitis with E. coli following patient recent therapeutic paracentesis performed on 12/22/2018. Patient has been admitted to regular nursing floor started on broad-spectrum antibiotic therapy consult placed to interventional radiology for diagnostic paracentesis. Patient ascitic fluid analysis following her paracentesis was consistent with bacterial peritonitis managed with cefepime switched to Rocephin following consultation with infectious disease. Patient was discharged home on Cipro 500 mg daily for prophylaxis 2. Acute diarrhea noted enteric pathogen panel as well as stool for C. difficile. Stool studies unremarkable 3. Recurrent breast CA with mets to the bone and liver patient is managed by Dr. Grove; case discussed with him; patient's oncologist recommended to obtain consultation with hospice/palliative care team 4. Severe protein calorie malnutrition as evidenced by muscle wasting, decreased energy level and low BMI of 16.8 5. Acute cholestasis from patient's liver mets 6. Oral candidiasis patient is on Diflucan 7. DVT prophylaxis SC Lovenox Patient Problems: Active and Suspected Problems Ascites (Acute) Peritonitis (Acute) Abdominal pain (Acute) Suspect bacterial peritonitis vs related to cancer progression Objective: GENERAL: Appears frail looking HEENT: Atraumatic; EYES; Anicteric, jaundiced conjunctiva NECK; supple, normal thyroid, RESPIRATORY: Diminished to auscultation CARDIOVASCULAR: Regular S1 S2, GI: Colitis abdominal tenderness : No Renal angle tenderness; EXTREMITIES: No edema, no clubbing, MUSCULOSKELETAL: No Joint Tenderness; NEURO: Awake; no lateralizing signs. SKIN: Jaundiced PSYCH; Normal affect - Physical Exam Vital Signs Temp Pulse Resp BP Pulse Ox 97.9 F 100 18 172/86 H 98 12/31/18 08:39 12/31/18 08:39 12/31/18 08:39 12/31/18 08:39 12/31/18 08:39 Oxygen Delivery Method [2] Room Air Oxygen Delivery Method [1 ( Room Air Initial Baseline)] Oxygen Delivery Method Room Air Weight: 45.087 kg Body Mass Index (BMI) 17.0 Intake and Output for Last 24 Hours 12/29/18 12/30/18 12/31/18 23:59 23:59 23:59 Intake Total 8536 / 9691 4548 / 4898 650 / 650 Balance 8536 / 9691 4548 / 4898 650 / 650 Microbiology Past 72 Hours 12/27/18 15:36 Gram Stain - Final Fluid - Paracentesis (Abd) Body Fluid Culture - Final Escherichia coli Domonique albicans 12/28/18 08:31 Enteric Bacteriology - Final Stool 12/28/18 08:20 C. difficile DNA Amplification - Final Stool Laboratory Tests Past 24 Hrs 12/31/18 12/31/18 05:54 05:54 WBC 9.1 RBC 4.04 L Hgb 12.0 Hct 36.6 L MCV 90.6 MCH 29.7 MCHC 32.8 RDW 18.3 H RDW Differential 57.0 H Plt Count 90 L MPV 10.3 Immature Gran % (Auto) 0.500 Neut % (Auto) 70.6 H Lymph % (Auto) 11.7 L Jerome % (Auto) 11.7 H Eos % (Auto) 5.1 H Baso % (Auto) 0.4 Absolute Neuts (auto) 6.4 Absolute Lymphs (auto) 1.07 Total Counted Not Reportable Sodium 137 Potassium 3.9 Chloride 107 Carbon Dioxide 23.0 Anion Gap 7 BUN 20 H Creatinine 0.85 Estim Creat Clear Calc 55.11 Est GFR (MDRD) Af Amer 90 Est GFR (MDRD) Non-Af 74 BUN/Creatinine Ratio 23.5 H Glucose 98 Calcium 8.0 L Discharge Activity: Return to Normal Activity, May not drive while taking narcotic pain medications. Home Medications: Medications to take at Discharge Capecitabine 1,500 mg PO BID 12/27/18 Cholecalciferol (VIT D3) [Vitamin D3] 1,000 unit PO DAILY 12/27/18 Furosemide [Lasix] 20 mg PO QODAY 12/27/18 Potassium Chloride [Klor-Con M20] 20 meq PO DAILY 12/27/18 Spironolactone 25 mg PO DAILY 12/27/18 Zolpidem Tartrate 5 mg PO QHS PRN PRN 12/27/18 Ciprofloxacin 500 mg PO DAILY #200 ml 12/31/18 Nystatin 500,000U/5ML [Mycostatin] 5 ml PO 4X/DAY #200 ml 12/31/18 Ondansetron [Ondansetron Odt] 8 mg PO 4X/DAY PRN PRN #30 tab.rapdis 12/31/18 Oxycodone [Oxyfast] 10 mg PO Q4H PRN PRN 5 Days #10 ml 12/31/18 Following Prescrptions Were Given to Patient: Ciprofloxacin 500 mg PO DAILY #200 ml Prescription Printed Nystatin 500,000U/5ML [Mycostatin] 5 ml PO 4X/DAY #200 ml Prescription Printed Ondansetron [Ondansetron Odt] 8 mg PO 4X/DAY PRN PRN #30 tab.rapdis PRN Reason: Nausea/Vomiting Prescription Printed Oxycodone [Oxyfast] 10 mg PO Q4H PRN PRN 5 Days #10 ml PRN Reason: Pain Prescription Printed Primary Care Physician: Robetr Bailon MD [Primary Care Provider] - Please follow up with your Primary Care Physician in: in 1-2 weeks Please Follow Up With: Sudeep Grove MD When: in 1 week Disposition: Home with Hospice Minutes spent on discharge:: 45 Patient Condition:: Fair Medical Necessity - Tobacco Use Smoking Status: Current some day smoker Tobacco Use: Cigarettes Meaningful Use Info Meaningful Use Diagnoses (Choose all that apply): None applicable Code Visit Inpatient E&M: 34916 Disch Hosp
[2018-12-31] MEDS: Spironolactone 25 MG Tablet PO (09:48)
[2018-12-31] MEDS: Furosemide 20 MG Tablet PO (09:48)
[2018-12-31 12:36] VITALS: BP 154/76; PULSE 99; RESP 18; TEMP 37.2; O2SAT 99
[2018-12-31 16:16] LABS: CA 27.29 252.1 U/mL (0.0-38.6)
[2019-01-01 14:17] LABS: Pathologist Comment/Body Fluid Reviewed
== END 2018-12-31 12:40 | disposition hospice, home (50) | DRG 371 ==
LOC: ED 12:19 → MS3 13:03
PROVIDERS: Internal Medicine Hematology & Oncology; Admitting Provider Internal Medicine; Emergency Provider Emergency Medicine; Family Provider Family Medicine; PCP Family Medicine; Visit Provider Internal Medicine
DX: K65.2 Spontaneous bacterial peritonitis (principal); E43 Unspecified severe protein-calorie malnutrition; K83.1 Obstruction of bile duct; C78.7 Secondary malignant neoplasm of liver and intrahepatic bile duct; Z68.1 Body mass index [BMI] 19.9 or less, adult; C79.51 Secondary malignant neoplasm of bone; B37.0 Candidal stomatitis; K52.1 Toxic gastroenteritis and colitis; Z85.3 Personal history of malignant neoplasm of breast; F17.210 Nicotine dependence, cigarettes, uncomplicated; Z66 Do not resuscitate; B96.20 Unspecified Escherichia coli [E. coli] as the cause of diseases classified elsewhere; Z51.5 Encounter for palliative care; T45.1X5A Adverse effect of antineoplastic and immunosuppressive drugs, initial encounter
CPT/HCPCS: 36415; 49083; 74176; 80048; 80076; 81001; 82945; 83615; 83690; 83735; 84157; 85025; 85610; 86300; 87070; 87075; 87077; 87186; 87205; 87493; 87506; 88108; 88305; 88313; 88341; 88342; 89050; 97802; 99284; 99406; J2185; J7030; A4216; J0696; J2405

== ENCOUNTER → 2019-01-04 16:29 | Outpatient (CLI) | payer BC, SELFPAY ==
[2018-12-27 14:18] VITALS: BMI 17.0
[2019-01-04 17:11] LABS: International Normalized Ratio 1.3; Prothrombin Time (Protime)PT. 16.1 SECONDS (11.7-14.9)
[2019-01-04 17:25] LABS: Hematocrit 33.2 % (37-47); Hemoglobin 11.3 g/dl (12.0-15.0); Mean Corpuscular Hgb 32.9 pg (27.0-32.0); Mean Corpuscular Volume 96.8 fL (81-99); Mean Platelet Vol. 9.5 fl (6.2-12.0); Platelet Count 118 K/mm3 (150-450); RBC Distribution Width CV 26.8 % (11.6-14.6); RBC Distribution Width SD 89.9 fl (35.1-43.9); Red Blood Count 3.43 M/mm3 (4.2-5.4); White Blood Count 7.1 K/mm3 (4.4-11.0)
[2019-01-04 17:27] LABS: Scan Indicated on CBC? Y/N YES- FLAGS NOTED
[2019-01-04 19:37] LABS: Differential Comment SCANNED
== END ==
PROVIDERS: Family Provider Family Medicine; PCP Family Medicine; Referring Provider Surgery; Visit Provider Surgery
DX: R18.0 Malignant ascites (principal)
CPT/HCPCS: 36415; 85027; 85610

== ENCOUNTER → 2019-01-05 14:03 | Outpatient (CLI) | payer BC, SELFPAY ==
[2018-12-27 14:18] VITALS: BMI 17.0
--- NOTE | 2019-01-05 14:06 | US_ITS ---
PROCEDURE: Ultrasound guided paracentesis. DATE OF EXAMINATION: January 05, 2019.. INDICATION: Female, 53 years old. Ascites. PHYSICIAN: Tyler Coleman M.D. TECHNIQUE: The risks, benefits, and alternatives to the procedure were explained to the patient. The specific risks of bleeding, infection, and damage to bowel were detailed and accepted. Witnessed informed consent was obtained. The abdomen was ultrasonographically surveyed. An appropriate pocket of fluid was identified at the right lower quadrant. The skin were cleaned and prepped in the usual sterile fashion. Using ultrasound guidance, the peritoneal cavity was accessed with a 5-Estonian paracentesis needle/catheter system. The trocar was removed. A total of 820 ml of cloudy felipe-colored fluid were removed from the peritoneal cavity. A 120 mL sample was sent to the laboratory. The catheter was removed and a sterile dressing was applied. The procedure was well tolerated. US/Paracentesis with US IMPRESSION: Ultrasound guided paracentesis. Electronically Signed: Tyler Coleman, at 15:24 EDT , Service support ,
[2019-01-05 15:48] VITALS: BP 104/70; BP 114/71; PULSE 92; PULSE 98; RESP 18; O2SAT 99
== END ==
PROVIDERS: Family Provider Family Medicine; PCP Family Medicine; Referring Provider Surgery; Visit Provider Surgery
DX: R18.0 Malignant ascites (principal)
CPT/HCPCS: 49083; 87070; 87075; 87205

== ENCOUNTER 2019-01-10 07:50 | Day surgery (SDC) | payer BC, SELFPAY ==
--- NOTE | 2019-01-08 18:14 | HP.PCM_ITS ---
History and Physical Date of Admission: 01/10/19 HISTORY AND PHYSICAL ? Marilu Bass 1965 ? ? REFERRING PHYSICIAN: ??Osman Bailon* ? CHIEF COMPLAINT: ??discuss pleurx ? HPI: The patient is a 53 year old female with a diagnosis of?metastatic breast cancer with extensive bone metastasis, liver metastasis and ascites.. ?Marilu?is now been transferred to hospice care. ???Marilu underwent an abdominal paracentesis on December 27, 2018.. ? Fluid was sent for culture which returned as Escherichia coli and Domonique on the routine culture and Clostridium Bacteroides on the anaerobic culture.??Cytology returned as marked acute inflammation. ?Immunohistochemistry was negative for malignant cells.??Body fluid panel returned as yellow cloudy fluid with a total elevated white blood cell count was 93% neutrophils ? The patient is referred for evaluation for placement of a tunnelled?peritoneal?catheter or Pleurex catheter?due to rapid recanalization of fluid and to assist in care for the patient and hospice ? PAST?MEDICAL?HISTORY PAST MEDICAL HISTORY Diagnosis Date ? Breast cancer (HCC) ? ? 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 Other kyphoscoliosis and scoliosis ? ? ? PAST?SURGICAL?HISTORY PAST SURGICAL HISTORY Procedure Laterality Date ? MASTECTOMY BRA ? ? ? left breast ? MASTECTOMY,SIMPLE Right 06/2017 ? S PORT-A[facility]CATH [phone] ? CURRENT?MEDICATIONS Current Outpatient Medications Medication Sig Dispense Refill ? potassium chloride ER (K-DUR, KLOR-CON) 20 mEq tablet Take 1 tablet by mouth once daily. 30 tablet 0 ? furosemide (LASIX) 20 mg tablet Take 1 tablet by mouth every 48 hours. 20 tablet 0 ? capecitabine (XELODA) 500 mg tablet Take 3 tablets (1500mg) by mouth twice daily for 14 days, followed by 7 days off. Take after meals 84 tablet 0 ? spironolactone (ALDACTONE) 25 mg tablet Take 1 tablet by mouth once daily. 30 tablet 0 ? zolpidem (AMBIEN) 5 mg tablet Take 1 tablet by mouth at bedtime as needed for up to 30 days. FOR INSOMNIA (Patient not taking: Reported on 12/05/2018 ) 30 tablet 0 ? prochlorperazine (COMPAZINE) 10 mg tablet Take 1 tablet by mouth every 6 hours as needed. 30 tablet 2 ? calcium carbonate-vitamin D3 (OSCAL+D) 500 mg(1,250mg) -400 unit chewable tablet Take 1 tablet by mouth twice daily. 60 tablet 5 ? No current facility-administered medications for this visit.? ? ALLERGIES:?Patient has no known allergies. ? PERSONAL HISTORY:? SOCIAL?HISTORY Social History ??Socioeconomic History ?Marital status: ?Spouse name: Cristian ?Number of children: 1 ?Years of education: Not on file ?Highest education level: Not on file ??Social Needs ?Financial resource strain: Not on file ?Food insecurity - worry: Not on file ?Food insecurity - inability: Not on file ?Transportation needs - medical: Not on file ?Transportation needs - non-medical: Not on file ??Occupational History ?Not on file ??Tobacco Use ?Smoking status: Current Every Day Smoker ?Packs/day: 1.00 ?Years: 30.00 ?Pack years: 30 ?Types: Cigarettes ?Smokeless tobacco: Never Used ?Tobacco comment: 2 ciggs daily ??Substance and Sexual Activity ?Alcohol use: Yes ?Comment: occassional ?Drug use: No ?Sexual activity: Never ??Other Topics ?Concerns: ?Not on file ??Social History Narrative ?Not on file ? FAMILY HISTORY:? FAMILY?HISTORY FAMILY HISTORY Problem Relation Age of Onset ? Breast Cancer Mother ? ? Diabetes Father ? ? other (ms) Sister ? ? REVIEW OF SYMPTOMS: ??The review of systems data was entered by the nurse and reviewed by me ? Nursing Notes: Anaya Nguyen LPN ?01/04/2019 ?3:25 PM ?Signed REVIEW OF SYSTEMS: ?General:???The patient NOTES fatigue, NOTES weight loss, NOTES weight gain, denies feeling hot, and NOTES feelings of cold. ?Eyes: ?The patient denies glaucoma, denies eye injury/surgery, wears glasses or contacts. ?Ear/Nose/Throat: ?The patient denies allergies, denies hayfever, denies ear infections, and NOTES bloody noses. ?Cardiovascular: ?The patient denies chest pain, denies heart disease, denies high blood pressure,denies cardiac stent, denies prior heart attack, denies irregular heart beat, denies high cholesterol, ?NOTES poor circulation, denies heart failure, other cardiac issues, denies claudication, denies cold feet, denies peripheral arterial stent. ?Respiratory: ?The patient denies tuberculosis, denies pneumonia, denies frequent cough, denies pulmonary embolism, denies shortness of breath, and denies coughing up blood. ?Gastrointestinal: ?The patient denies difficulty swallowing, denies acid reflux, denies ulcers, denies vomiting, denies jaundice/hepatitis, denies gallbladder problems, denies black or tarry stools, denies hemorrhoids, denies bleeding from rectum, denies diverticulitis, denies constipation, NOTES diarrhea, denies loss of stool control, and denies hernias. ?Kidney/Bladder: ?The patient notess kidney stones, denies urine infections, and denies bloody urine. ?Skin: ?The patient denies a history of skin cancer, denies bleeding/changing moles, and denies a history of skin rash. ?Neurologic: ?The patient denies a history of epilepsy/convulsions, denies headaches, denies head/spinal injuries, and denies stroke/TIA. ?Psychiatric: ?The patient denies psychiatric medications, denies depression, and denies voices, denies substance abuse. ?Endocrine: ?The patient denies thyroid disorders, denies diabetes, and denies hormonal problems. ?Hematologic: ?The patient denies a history of bruising, denies bleeding, and denies anemia, denies blood clots. ?Infections: ?The patient denies a history of measles and mumps, denies rheumatic fever, and denies sexually transmitted diseases. ?Musculoskeletal: ?The patient denies back pain/injury, denies back problems, denies sciatica, denies knee/foot trouble, denies arthritis, or denies gout. ? ? When was patient's last Mammogram screening? 2017?Last Colonoscopy: ?None ? Anaya Nguyen LPN ? PHYSICAL EXAMINATION: ? General: ?The patient is 53 year old female, poorly nourished, thin appearing but well hydrated and?in no acute distress. ?The patient is oriented to time, place, and person. ? VITALS:?Blood pressure 112/60, pulse 110, temperature 37.1 ?C (98.7 ?F), temperature source Temporal Artery, resp. rate 20, height 162.6 cm (5' 4), weight 47.9 kg (105 lb 9.6 oz), SpO2 100 %.?Body mass index is 18.13 kg/m?.? ? HEENT: ?Normal cephalic, ataumatic, pupils are equally round, sclera are anicteric, mucous membranes are moist, oropharynx is clear. ?Neck has no masses, asymmetry or lymphadenopathy. ?Thyroid is unremarkable. ? Respiratory: ?Clear to auscultation and percussion. ?Normal respiratory excursion and pattern. ? Cardiac: ?Examination is regular rate and rhythm. ? Abdominal exam: ?Soft, nontender, ?with no palpable masses. ?No hepatosplenomegaly. ?No palpable hernias. ?The patient has significant abdominal distention consistent with recurrent ascites. ???She has fluid still leaking from her abdominal wall where she had the previous paracentesis ? Rectal exam:??exam deferred ? Extremities: ?no clubbing, cyanosis or edema. ?No adenopathy. ? Other: ? ? LABORATORY VALUES: As Noted ? RADIOLOGIC STUDIES: ?As Noted ? Assessment ? IMPRESSION:??Advanced metastatic breast cancer, ascites, concern for infected ascites, recurrent?ascites following paracentesis ? PLAN:??? I recommend she undergo repeat paracentesis with repeat culture of the fluid and sending fluid again for body fluid panel and cytology. ?Hopefully this will impr ove her symptomatic abdominal distention and allow her appetite to improve. ? If culture returns as negative,?I plan to perform a tunnelled?peritoneal?catheter or Pleurex catheter placement next week. ?The planned surgical procedure was discussed extensively with the patient. ?The risks, benefits, anticipated outcomes and possible complications were mentioned. ?My staff has also explained the procedure in understandable terms and the patient was given the option to take printed material concerning the planned procedure. ?The patient had the opportunity to ask questions concerning the planned procedure. ?The patient freely consents to the planned procedure. ? I feel given the patient's overall status that placing a catheter although having increased risk for infection would likely improve her symptomatology ? Diagnoses:?(R18.0) Malignant ascites ?(primary encounter diagnosis) ? ? Anticipated Surgical Procedure/ CPT Code:?46502 - Insertion of Tunnelled Intraperitoneal Catheter and 85459 - Ultrasound Guidance for Needle Placement ? Anticipated Anesthetic:?MAC with local ? Patient weight:??Blood pressure 112/60, pulse 110, temperature 37.1 ?C (98.7 ?F), temperature source Temporal Artery, resp. rate 20, height 162.6 cm (5' 4), weight 47.9 kg (105 lb 9.6 oz), SpO2 100 %.?BMI: ?Body mass index is 18.13 kg/m?. ? Planned antibiotic:?Zosyn 3.375gm ? SCDs needed -?No ? Battery Test Engineer Needed -?No ? Som Mclean MD
[2019-01-10] VITALS (9 sets, daily range): BP systolic 96–107; BP diastolic 63–88; PULSE 78–88; RESP 16–20; TEMP 36.2–37.1; O2SAT 92–100; BMI 17.5
--- NOTE | 2019-01-10 07:29 | CT_ITS ---
STUDY: CT ABDOMEN AND PELVIS WITHOUT CONTRAST REASON FOR EXAM: Female, 53 years old. Patient has a history of metastatic breast cancer. RADIATION DOSAGE (If Supplied By Facility): CTDIvol = ( 6.04 ) mGy, DLP = ( 282.37 ) mGycm TECHNIQUE: Transaxial images were obtained from the dome of the diaphragm to the symphysis pubis without oral contrast, and without intravenous contrast. Sagittal and coronal images were reconstructed. Individualized dose optimization techniques were used for this CT. COMPARISON: Comparison is made with prior study dated December 27, 2018. FINDINGS: Small left pleural effusion with her left basilar atelectasis. The visualized portions of the heart are within normal limits. Diffuse ascites. Moderate pelvic ascites. There is a diffuse contour abnormality of the liver consistent with cirrhotic changes. Multiple masses are seen within the liver in keeping with diffuse metastasis. Normal gallbladder and extrahepatic biliary system. Normal spleen. Normal pancreas. Normal bilateral adrenal glands. Normal right kidney. Normal left kidney. Normal visualized stomach. Normal small intestine. There are scattered colonic diverticula consistent with diverticulosis. The appendix is visualized and appears normal. There is diffuse atherosclerotic calcification of the abdominal aorta, without a demonstrated aneurysm. Normal inferior vena cava. Normal retroperitoneum. Normal urinary bladder. Normal abdominal wall. Stable bony metastasis. CT/Abdomen/Pelvis without Cont IMPRESSION: Diffuse ascites worse in the pelvis. Multiple liver and skeletal metastasis. Electronically Signed: Tyler Coleman, at 8:36 EDT , Service support ,
--- NOTE | 2019-01-10 12:20 | PCM.OPRPT ---
Report of Operation Date of Procedure: 01/10/19 Pre-Operative Diagnosis: metastatic breast cancer, ascites Post-Operative Diagnosis: metastatic breast cancer, ascites Surgery/Procedure Performed:: ultrasound guided tunneled peritoneal catheter/pleurex farm products shipper: None Type of Anesthesia:: Local MAC Anesthesiologist: Marty Hutchison - ASA3 Specimen's removed: ascites for culture Drains: peritoneal drain - 1300 Estimated Blood Loss (mL): <10 Fluids Replaced: 400 Description of Procedure: The patient was brought to the operating suite. Sign was performed verifying patient, site, position, skip antibiotic prophylaxis- Zosyn 3.375 g due to previous culture positive ascites fluid and DVT prophylaxis with SCDs. Ultrasound was used to evaluate the lower abdomen and a window marked providing good entry into the peritoneal cavity along with marking the inferior epigastric to avoid the risks for bleeding was marked on the skin in the Following IV sedation, abdomen were prepped and draped in the usual fashion. Timeout was performed verifying patient, site, position. Local anesthetic was injected and and 18-gauge needle was inserted with out return of ascites. At this point, ultrasound was again obtainedand a pocket of fluid was able to identified and accessed. A Seldinger needle was used to access the peritoneal cavity without difficulty. A guidewire was inserted and advanced into the peritoneal space. Local anesthetic was injected and incision made for the catheter exit site. Next the catheter was tunneled from the skin exit site to the wire. Dilators were placed over the wire until the largest dilator with introducer sheath were placed. The wire and dilator removed. The catheter was fed through the introducer suture sheath and adjusted to the edge of the abdominal cavity with the fenestrations . There was good return of ascites fluid. The Pleurx catheter was affixed to an adapter and ascetic fluid was drained. A total of approximately 1400 cc of fluid was drained. The catheter was secured with a 3-0 silk suture at the skin exit site. The abdominal insertion site skin was closed with 4-0 Biosyn interrupted subcuticular sutures. Dermabond was applied to the abdominal insertion site. A dressing was applied. The catheter was then capped and dressed with the occlusive dressing The patient was brought to recovery room in stable condition. Grafts/Implants Used: Pleurex catheter - [id number] Lot [id number] - Admit VTE Documentation VTE Present on Admission: No VTE Mechan Device Prophylaxis: SCD's VTE Pharm Prophylaxis ordered?: No
--- NOTE | 2019-01-10 12:23 | DCINST_ITS ---
Discharge Diet: Light diet - advance as tolerated - If you have questions about your diet instructions, please talk to your doctor. Discharge Activity: May Not Drive - for 1 week or while taking narcotic pain meds., May Shower - just before draining pleurex catheter May shower in (days): 1 Lifting Restrictions: 10 pounds Call your doctor if your incision/area has: Continuous Slow Oozing, Sudden Increased Bleeding, Increased Pain/ Swelling, Increased Redness, Foul Smelling Discharge Call your doctor if you observe: Fever of 101 or Higher Suture Line Care: Avoid Pulling/Pushing, Avoid Pinching/Bending Additional Dressing/Incision Instructions:: Change or remove dressing in 4 days. Leave steri-strips in place for 1 week. Allergies/Adverse Reactions: Allergies No Known Allergies Allergy (Verified 01/09/19 13:43) Medications to take at Discharge Cholecalciferol (VIT D3) [Vitamin D3] 1,000 unit PO DAILY 12/27/18 Furosemide [Lasix] 20 mg PO DAILY 12/27/18 Spironolactone 25 mg PO DAILY 12/27/18 Zolpidem Tartrate 5 mg PO QHS PRN PRN 12/27/18 Ciprofloxacin 500 mg PO DAILY #200 ml 12/31/18 Ondansetron [Ondansetron Odt] 8 mg PO 4X/DAY PRN PRN #30 tab.rapdis 12/31/18 HYDROmorphone tablet [Dilaudid] 2 mg PO Q4H PRN PRN 01/09/19 Lorazepam [Ativan] 0.5 mg PO Q4H PRN 01/09/19 Primary Care Physician: Robert Bailon MD [Primary Care Provider] - Test Results: Test results from this visit will be discussed in further detail at your follow- up appointment, if applicable. Please Follow Up With: Som Mclean MD - [phone] When: Call to make an appointment to be seen in about 10 days.
== END 2019-01-10 13:50 | disposition home or self-care (01) ==
LOC: SDC 07:51 → AC 07:52
PROVIDERS: Family Provider Family Medicine; PCP Family Medicine; Referring Provider Surgery; Visit Provider Surgery
PROC: (CPT 32550; principal; 2019-01-10 09:35)
DX: C50.919 Malignant neoplasm of unspecified site of unspecified female breast (principal); R18.0 Malignant ascites; C79.51 Secondary malignant neoplasm of bone; C78.7 Secondary malignant neoplasm of liver and intrahepatic bile duct; F17.210 Nicotine dependence, cigarettes, uncomplicated
CPT/HCPCS: 00840; 49418; 74176; 87015; 87070; 87075; 87116; 87205; 87206; J7120; C1729; J2405